=== PATIENT | male | born 1965 | race African-American/Black ===

== ENCOUNTER 2017-10-29 09:44 | Observation (INO) | payer OTHER ==
[~2017-10-29] VITALS: Ht 175.3 cm; Wt 97.1 kg
--- OUTSIDE RECORDS SUMMARY | 2017-10-29 09:46 | XMS REPORT | Clinical Summary ---
Author Author [facility] Address Unknown Phone Unavailable Care Team Providers Care Clipping Marker Name Role Phone PCP Unavailable Allergies Active Allergy Reactions Severity Noted Date Comments Hydrocodone-Acetaminophen Other (See Comments) 08/21/2017 "high feeling " Current Medications Prescription Sig. Disp. Refills Start End Date Status Date ALPRAZolam (XANAX) 0.25 Take 0.25 mg by mouth as Active MG tablet needed for Anxiety . metoprolol (TOPROL-XL) 50 Take 50 mg by mouth Active MG 24 hr tablet daily. lisinopril Take by mouth daily . Active (PRINIVIL,ZESTRIL) 10 MG tablet amiodarone (PACERONE) 100 Take 100 mg by mouth Active MG tablet daily. apixaban (ELIQUIS) 5 mg Take 5 mg by mouth daily Active Tab tablet . metroNIDAZOLE (FLAGYL) Take 1 tablet (500 mg 40 tablet 0 10/21/19 Active 500 MG tablet total) by mouth 4 (four) 18 18 times daily for 10 days. acetaminophen-codeine Take 1-2 tablets by mouth 20 tablet 0 10/21/19 10/31/19 Active (TYLENOL #3) 300-30 mg every 6 (six) hours as 18 18 per tablet needed for Pain for up to 10 days. Max Daily Amount: 8 tablets ciprofloxacin HCl (CIPRO) Take 1 tablet (500 mg 20 tablet 0 10/21/19 10/31/19 Active 500 MG tablet total) by mouth 2 (two) 18 18 times daily for 10 days. enalapril-hydrochlorothia Take 1 tablet by mouth 05/30/20 Discontin zide (VASERETIC) 10-25 mg daily. 5/12.5mg 17 ued per tablet fenofibrate Take 160 mg by mouth 05/30/20 Discontin (TRIGLIDE,LOFIBRA) 160 MG daily. 17 ued tablet enoxaparin (LOVENOX) 40 Inject 0.4 mLs (40 mg 7 Syringe 0 07/13/19 05/30/20 Discontin mg/0.4 mL Syrg total) subcutaneously 15 17 ued daily. aspirin 81 MG EC tablet Take 81 mg by mouth 07/14/19 Discontin daily. 18 ued celecoxib (CELEBREX) 200 Take 200 mg by mouth 08/27/19 Discontin MG capsule daily. 18 ued multivitamin capsule Take 1 capsule by mouth 08/13/19 Discontin daily. 18 ued cetirizine (ZYRTEC) 10 MG Take 10 mg by mouth every 08/13/19 Discontin tablet evening. 18 ued pantoprazole (PROTONIX) Take 1 tablet (40 mg 30 tablet 0 07/14/19 40 MG tablet total) by mouth daily for 18 18 30 days. sucralfate (CARAFATE) 1 Take 1 tablet (1 g total) 45 tablet 0 07/29/19 gram tablet by mouth 3 (three) times 18 18 daily before meals for 15 days. acetaminophen-codeine Take 1-2 tablets by mouth 30 tablet 0 08/13/19 08/27/19 Discontin (TYLENOL #3) 300-30 mg every 6 (six) hours as 18 18 ued per tablet needed for up to 10 days. Max Daily Amount: 8 tablets methocarbamol (ROBAXIN) Take 1 tablet (750 mg 40 tablet 0 08/13/19 08/27/19 Discontin 750 MG tablet total) by mouth 4 (four) 18 18 ued times daily for 10 days. methylPREDNISolone follow package 1 Package 0 08/13/19 08/27/19 Discontin (MEDROL DOSEPACK) 4 mg directions. 18 18 ued tablet acetaminophen-codeine Take 1 tablet by mouth 60 tablet 0 08/27/19 (TYLENOL #4) 300-60 mg every 4 (four) hours as 18 18 per tablet needed for up to 10 days. Max Daily Amount: 6 tablets methocarbamol (ROBAXIN) Take 1 tablet (750 mg 40 tablet 0 08/27/19 09/07/19 750 MG tablet total) by mouth 4 (four) 18 18 times daily for 10 days. ciprofloxacin HCl (CIPRO) Take 1 tablet (500 mg 40 tablet 0 10/21/19 10/21/19 Discontin 500 MG tablet total) by mouth 4 (four) 18 18 ued times daily for 10 days. ciprofloxacin HCl (CIPRO) Take 1 tablet (500 mg 20 tablet 0 10/21/19 10/21/19 Discontin 500 MG tablet total) by mouth 2 (two) 18 18 ued times daily for 10 days. ciprofloxacin HCl (CIPRO) Take 1 tablet (500 mg 20 tablet 0 10/21/19 10/21/19 Discontin 500 MG tablet total) by mouth 2 (two) 18 18 ued times daily for 10 days. ciprofloxacin HCl (CIPRO) Take 1 tablet (500 mg 20 tablet 0 10/21/19 10/21/19 Discontin 500 MG tablet total) by mouth 2 (two) 18 18 ued times daily for 10 days. Active Problems Problem Noted Date Back pain 08/23/2017 Sciatica of left side 08/21/2017 PAF (paroxysmal atrial fibrillation) (HCC) 07/13/2017 Paroxysmal atrial fibrillation (HCC) 05/28/2017 Encounters Date Type Specialty Care Team Description 10/20/2017 [facility] Diverticulitis of large intestine without perforation or abscess without bleeding (Primary Dx);Calculus of gallbladder without cholecystitis without obstruction 08/26/2017 Procedure Pass 08/26/2017 Surgery Brianda Daly MD LAMINECTOMY,LUMBAR W/DISCECTOMY 08/25/2017 Anesthesia Misty Mcarthur, Event REFRACTORY TECHNICIAN 08/21/2017 [facility] General Internal Medicine Elizabeth Ortega MD Sciatica of left side - Encounter Jerad Zamora MD (Primary Dx);Intractable 08/27/2017 Braydon Felix MD back pain 08/13/2017 Emergency Emergency Medicine Anthony Manley MD Lumbar herniated disc (Primary Dx);Acute left-sided low back pain with left-sided sciatica;Hypertension, uncontrolled;Chronic anticoagulation;History of atrial fibrillation 07/13/2017 [facility] Cardiology Bebo Kaye MD S/P ablation of atrial - Encounter fibrillation (Primary Dx) 07/14/2017 07/13/2017 Procedure Pass 07/13/2017 Surgery Bebo Kaye MD EPS & PULMONARY VEIN (PVI) W/ ROXY & GENERAL ANESTHESIA 07/12/2017 Anesthesia Jonh Rueda MD Event 07/12/2017 Orders Only Cardiology Bebo Kaye MD 07/11/2017 Hospital Radiology Bebo Kaye MD Encounter for screening Encounter for cardiovascular disorders;Chronic atrial fibrillation (HCC);Precordial pain;Other chest pain 07/07/2017 Outside Orders Central Scheduling Bebo Kaye MD Encounter for screening for cardiovascular disorders (Primary Dx);Chronic atrial fibrillation (HCC);Precordial pain;Other chest pain 05/28/2017 Emergency Cardiology Keven Robb, Paroxysmal atrial - MD fibrillation (HCC) 05/30/2017 Everett Ramos MD (Primary Dx) 05/28/2017 Orders Only General Internal Medicine 12/22/2016 [facility] Alex Ayala MD Neck pain Encounter 12/22/2016 Outside Orders Alex Ayala MD Neck pain (Primary Dx) after 10/28/2016 Social History Tobacco Use Types Packs/Day Years Used Date Former Smoker Smokeless Tobacco: Never Used Comments: quit in 1987 Alcohol Use Drinks/Week oz/Week Comments No Sex Assigned at Date Recorded Not on file Last Filed Vital Signs Vital Sign Reading Time Taken Blood Pressure 125/85 10/20/2017 5:57 AM CDT Pulse 80 10/19/2017 11:15 PM CDT Temperature 36.6 C (97.8 F) 10/19/2017 11:15 PM CDT Respiratory Rate 20 10/19/2017 11:15 PM CDT Oxygen Saturation 94% 10/20/2017 6:02 AM CDT Inhaled Oxygen - - Concentration Weight 96.2 kg (212 lb) 10/19/2017 11:15 PM CDT Height 175.3 cm (5' 9") 10/19/2017 11:15 PM CDT Body Mass Index 31.31 10/19/2017 11:15 PM CDT Plan of Treatment Not on file Implants Implanted Type Area Airport Operations Manager Device Expiration Model / Identifier Date Serial / Lot Mynxgrip Vascular Closure Device Cardiovasc N/A: Groin [facility] [id number] 06/02/2019 / Implanted: Qty: 1 on 07/13/2017 by ciara Montes / Bebo Kaye MD [id number] [facility] Full Strlprep 10ml Cement/Itz Left: Back TSAI:BIOSCI [id number] / [id number] - [id number] ler/Adhesi / Implanted: Qty: 1 on 08/26/2017 by tra [id number] Brianda Daly MD Procedures Procedure Name Priority Date/Time Associated Diagnosis Comments PROCEDURE W/ 08/26/2017 Lumbar radiculopathy INTRAOPERATIVE 1:55 PM COMMUNITY ENGAGEMENT LEADER NEUROMONITORING Special Needs (PRONE POSITION,W ILSON FRAME, MICROSCOPE , NEURO-KIM TORING: EMG, METRX SYSTEM) LAMINECTOMY,LUMBAR 08/26/2017 Lumbar radiculopathy W/DISCECTOMY 1:55 PM COMMUNITY ENGAGEMENT LEADER Special Needs (PRONE POSITION,W ILSON FRAME, MICROSCOPE , NEURO-KIM TORING: EMG, METRX SYSTEM) EPS & PULMONARY VEIN 07/13/2017 I48.91 AFIB (PVI) W/ ROXY & GENERAL 7:30 AM COMMUNITY ENGAGEMENT LEADER ANESTHESIA Case Notes (1) Case, 6T OP, W/G Anesthesia after 10/28/2016 Results * Urinalysis w/Microscopic - Clean Catch (10/20/2017 4:52 AM) Component Value Ref Range Color, UA Yellow Clarity, UA Clear Specific [place], UA 1.024 1.001 - 1.035 pH, UA 6.0 5.0 - 8.0 Protein, UA 20 mg/dL (A) Negative Glucose, UA Negative Negative Ketones, UA >150 mg/dL (A) Negative Bilirubin, UA Negative Negative Blood, UA Negative Negative Nitrite, UA Negative Negative Leukocytes, UA Negative Negative Urobilinogen, UA 0.2 0.2 - 1.0 mg/dL RBC, UA <1 /HPF WBC, UA 2 /HPF Mucus Few Specimen Source Urine, Clean Catch Specimen Performing Laboratory Urine - Urine, Clean [facility] Catch [id number] [place] [address] * CT abdomen pelvis with IV contrast (10/20/2017 3:16 AM) Specimen Performing Laboratory GE RIS Narrative Addendum Begins REPORT STATUS:A Correction: The impression should read: Findings suggestive of right colonic diverticulitis. Follow-up colonoscopy is recommended to exclude an underlying lesion. This correction was discussed with Dr. Akhtar at the time of dictation. Signed: Parish Schuster MD Report Verified Date/Time:10/20/2017 04:18:28 Reading Location: [address] Reading Room Addendum Ends FINAL REPORT CLINICAL HISTORY: Acute abdominal pain. FINDINGS: Multiple axial images of the abdomen and pelvis were performed after the uncomplicated administration of IV contrast. Oral contrast was not given. This exam was performed according to our departmental dose-optimization program, which includes automated exposure control, adjustment of the mA and/or kV according to patient size and/or use of the iterative reconstruction technique. Comparison:None. Lower chest: Curvilinear atelectasis versus scarring in the right greater than left lung bases. No pleural effusion or pneumothorax. Visualized cardiac contours normal. Liver: No significant findings. Gallbladder and biliary tree: Cholelithiasis Spleen: No significant findings. Adrenal Glands: No significant findings. Kidneys and ureters: No significant findings. Stomach and Duodenum: No significant findings. Pancreas: No significant findings. Bowel: Several colonic diverticula, including one at the ascending colon with adjacent inflammatory fat stranding. No evidence of perforation or abscess formation. No bowel obstruction or pneumatosis intestinalis. Appendix: Normal. Bladder: No significant findings. Major vascular structures: No significant findings. Reproductive organs: No significant findings. Other:No free air, fluid or adenopathy Skeleton: No acute bony abnormality. IMPRESSION: Findings suggestive of right colonic diverticulosis. Follow-up colonoscopy is recommended to exclude an underlying lesion. Cholelithiasis. Signed: Parish Schuster MD Report Verified Date/Time:10/20/2017 03:44:36 Reading Location: [address] Room Procedure Note Interface, External Ris In - 10/20/2017 4:20 AM CDT Addendum Begins REPORT STATUS:A Correction: The impression should read: Findings suggestive of right colonic diverticulitis. Follow-up colonoscopy is recommended to exclude an underlying lesion. This correction was discussed with Dr. Akhtar at the time of dictation. Signed: Parish Schuster MD Report Verified Date/Time: 10/20/2017 04:18:28 Reading Location: [address] Reading Room Addendum Ends FINAL REPORT CLINICAL HISTORY: Acute abdominal pain. FINDINGS: Multiple axial images of the abdomen and pelvis were performed after the uncomplicated administration of IV contrast. Oral contrast was not given. This exam was performed according to our departmental dose-optimization program, which includes automated exposure control, adjustment of the mA and/or kV according to patient size and/or use of the iterative reconstruction technique. Comparison:None. Lower chest: Curvilinear atelectasis versus scarring in the right greater than left lung bases. No pleural effusion or pneumothorax. Visualized cardiac contours normal. Liver: No significant findings. Gallbladder and biliary tree: Cholelithiasis Spleen: No significant findings. Adrenal Glands: No significant findings. Kidneys and ureters: No significant findings. Stomach and Duodenum: No significant findings. Pancreas: No significant findings. Bowel: Several colonic diverticula, including one at the ascending colon with adjacent inflammatory fat stranding. No evidence of perforation or abscess formation. No bowel obstruction or pneumatosis intestinalis. Appendix: Normal. Bladder: No significant findings. Major vascular structures: No significant findings. Reproductive organs: No significant findings. Other: No free air, fluid or adenopathy Skeleton: No acute bony abnormality. IMPRESSION: Findings suggestive of right colonic diverticulosis. Follow-up colonoscopy is recommended to exclude an underlying lesion. Cholelithiasis. Signed: Parish Schuster MD Report Verified Date/Time: 10/20/2017 03:44:36 Reading Location: [address] Reading Room * Blood culture (10/20/2017 2:16 AM) Only the most recent of 2 results within the time period is included. Component Value Ref Range Result No growth in 5 days Specimen Performing Laboratory Blood - Arm, [address] [address] * CBC with platelet count + automated diff (10/20/2017 12:27 AM) Only the most recent of 3 results within the time period is included. Component Value Ref Range WBC 8.7 3.5 - 10.5 K/ L RBC 4.55 (L) 4.63 - 6.08 M/ L Hemoglobin 13.2 (L) 13.7 - 17.5 GM/DL Hematocrit 40.4 40.1 - 51.0 % MCV 88.8 79.0 - 92.2 fL MCH 29.0 25.7 - 32.2 pg MCHC 32.7 32.3 - 36.5 GM/DL RDW 13.9 11.6 - 14.4 % Platelets 198 150 - 450 K/CU MM MPV 11.5 9.4 - 12.4 fL nRBC 0 0 - 0 /100 WBC % Neutros 77 % % Lymphs 13 % % Monos 10 % % Eos 0 % % Baso 0 % # Neutros 6.69 (H) 1.78 - 5.38 K/ L # Lymphs 1.11 (L) 1.32 - 3.57 K/ L # Monos 0.86 (H) 0.30 - 0.82 K/ L # Eos 0.01 (L) 0.04 - 0.54 K/ L # Baso 0.01 0.01 - 0.08 K/ L Immature 0 0 - 1 % Granulocytes-Relative Specimen Performing Laboratory Blood - Arm, [place] [address] * CBC with platelet count + automated diff (10/20/2017 12:27 AM) Only the most recent of 3 results within the time period is included. Specimen Performing Laboratory Blood Narrative The following orders were created for panel order CBC with platelet count + automated diff. Procedure Abnormality Status --------- - ------ CBC with platelet count ...[[id number]]AbnormalFinal result Please view results for these tests on the individual orders. * Amylase (10/20/2017 12:27 AM) Component Value Ref Range Amylase 41 25 - 125 U/L Specimen Performing Laboratory Blood - Arm, [address] [address] * Hepatic function panel (10/20/2017 12:27 AM) Component Value Ref Range Protein, Total 7.6 6.0 - 8.3 gm/dL Albumin 4.0 3.5 - 5.0 g/dL Total Bilirubin 1.2 0.2 - 1.2 mg/dL Bilirubin, Direct 0.5 0.1 - 0.5 mg/dL Alkaline Phosphatase 40 40 - 150 U/L AST 18 5 - 34 U/L ALT 24 6 - 55 U/L Specimen Performing Laboratory Blood - Arm, [address] [address] * Basic metabolic panel (Na, K+, Cl, CO2, Glu, Ca, BUN, Cr) (10/20/2017 12:27 AM ) Only the most recent of 8 results within the time period is included. Component Value Ref Range Sodium 139 136 - 145 meq/L Potassium 3.6 3.5 - 5.1 meq/L Chloride 103 98 - 107 meq/L CO2 26 22 - 29 meq/L BUN 22 (H) 7 - 21 mg/dL Creatinine 1.03 0.57 - 1.25 mg/dL Glucose 97 70 - 105 mg/dL Calcium 9.5 8.4 - 10.2 mg/dL EGFR 92Comment: ESTIMATED GFR IS NOT ACCURATE mL/min/1.73 sq m CREATININE CLEARANCE IN PREDICTING GLOMERULAR FILTRATION RATE. ESTIMATED GFR IS NOT APPLICABLE FOR DIALYSIS PATIENTS. Specimen Performing Laboratory Blood - Arm, [address] [address] * CBC (Hemogram only) (08/27/2017 2:47 AM) Only the most recent of 5 results within the time period is included. Component Value Ref Range WBC 9.2 3.5 - 10.5 K/ L RBC 4.82 4.63 - 6.08 M/ L Hemoglobin 14.2 13.7 - 17.5 GM/DL Hematocrit 44.4 40.1 - 51.0 % MCV 92.1 79.0 - 92.2 fL MCH 29.5 25.7 - 32.2 pg MCHC 32.0 (L) 32.3 - 36.5 GM/DL RDW 14.3 11.6 - 14.4 % Platelets 218 150 - 450 K/CU MM MPV 10.8 9.4 - 12.4 fL nRBC 0 0 - 0 /100 WBC Specimen Performing Laboratory Blood [address] [address] * Tissue Exam (08/26/2017 8:57 PM) Component Value Ref Range Case Report Surgical Pathology Report Case: [id number] Authorizing Provider: Brianda Daly MD Collected: 08/26/20177 Ordering Location: [facility] PERIOPERATIVE Received: 08/29/2017 07 SERVICES Pathologist: Jared Hair MD Specimen: Disc L4-5 DIAGNOSIS INTERVERTEBRAL DISC, L4-L5, MICRODISCECTOMY: - FIBROCARTILAGENOUS TISSUE WITH DEGENERATIVE CHANGES Signing Pathologist Direct Phone Line: [phone] CPT Code(s) 11343 and 83450 CLINICAL HISTORY Lumbar radiculopathy SPECIMEN SOURCE Disc L4-5 GROSS DESCRIPTION The specimen is received in formalin-filled container and labeled with the patient's information and labeled "disc L4-5" and consists of multiple fragments of fields fibrocartilaginous tissue measuring 2.6 x 2 x 0.6 cm in aggregate. Submitted entirely A1 for decalcification. CG/pl MICROSCOPIC DESCRIPTION Performed. Specimen Performing Laboratory Tissue - Disc L4-5 [place] [address] * NEEDLE EMG, 2 EXTREMITY (08/26/2017 7:48 PM) Specimen Performing Laboratory GE RIS Narrative INTRAOPERATIVE MONITORING REPORT Patient Name: Brianda Garg [facility] Surgery Date: August 26, 2017 [place]: S/N [id number] Monitoring began at 17:13 and ended at 19:48 Surgeon: Raul Daly MD Examining Physician : Mode Baker MD Monitoring Technologist: SABRA Vogt Procedure: Left L4-5 microdiscectomy Stimulation Parameters: Ulnar nerves individually stimulated at the wrist Rate 4.7Hz, Intensity 35mA, Duration 0.3ms Posterior Tibial nerves individually stimulated at the ankle Rate 4.7Hz, Intensity 65mA, Duration 0.3ms Filters 30-500Hz, Notch Off Recording Parameters: CV, CP3, CP4, CPz, and FPz Free-running EMG of Vastus Lateralis (L2-4) and Tibialis Anterior (L4-L5) muscle groups. Description : Intraoperative neurophysiological monitoring was performed using free-running EMG of L2-L5 innervated muscle groups. Baseline EMG activity was assessed and found spontaneous activity from Left TA. A real-time connection with the examining neurologist was established and maintained throughout the operative procedure by the monitoring technologist. Free-running EMG of L2-L5 innervated muscle groups was monitored continuously throughout the operative procedure with no sustained neurotonic evoked potentials noted. Conclusion : Absence of sustained neurotonic discharges on free-running EMG suggests that the nerve roots monitored remained undisturbed. Mode Baker MD M54.32 Procedure Note Interface, External Ris In - 08/29/2017 1:51 PM COMMUNITY ENGAGEMENT LEADER INTRAOPERATIVE MONITORING REPORT Patient Name: Brianda Garg [facility] Surgery Date: August 26, 2017 Marc: S/N [id number] Monitoring began at 17:13 and ended at 19:48 Surgeon: Raul Daly MD Examining Physician : Mode Baker MD Monitoring Technologist: SABRA Vogt Procedure: Left L4-5 microdiscectomy Stimulation Parameters: Ulnar nerves individually stimulated at the wrist Rate 4.7Hz, Intensity 35mA, Duration 0.3ms Posterior Tibial nerves individually stimulated at the ankle Rate 4.7Hz, Intensity 65mA, Duration 0.3ms Filters 30-500Hz, Notch Off Recording Parameters: CV, CP3, CP4, CPz, and FPz Free-running EMG of Vastus Lateralis (L2-4) and Tibialis Anterior (L4-L5) muscle groups. Description : Intraoperative neurophysiological monitoring was performed using free-running EMG of L2-L5 innervated muscle groups. Baseline EMG activity was assessed and found spontaneous activity from Left TA. A real-time connection with the examining neurologist was established and maintained throughout the operative procedure by the monitoring technologist. Free-running EMG of L2-L5 innervated muscle groups was monitored continuously throughout the operative procedure with no sustained neurotonic evoked potentials noted. Conclusion : Absence of sustained neurotonic discharges on free-running EMG suggests that the nerve roots monitored remained undisturbed. Mode Baker MD M54.32 * FL radio operator in or 30 minute increments (08/26/2017 6:35 PM) Specimen Performing Laboratory GE RIS Narrative FINAL REPORT Intraoperative fluoroscopy. Clinical history: Decompression L4-L5 FINDINGS: Radiologist was not present for the exam. Fluoroscopy was not performed by the undersigned. Request was made for disc space localization. Surgical marker is aiming at the superior aspect of L5 and towards the L4-L5 disc space. Findings were discussed with the OR team at 6:45 PM on 08/26/2017 1 fluoroscopically acquired images of the lumbar were obtained. Fluoroscopy time: 6.8 seconds. Reference Air Kerma (Ka, r): 2.16 mGy. Impression: Intraoperative exam as described above. Signed: Joon Hyman MD Report Verified Date/Time:08/26/2017 18:47:17 Reading Location: [address] Consult Reading Room Procedure Note Interface, External Ris In - 08/26/2017 6:57 PM COMMUNITY ENGAGEMENT LEADER FINAL REPORT Intraoperative fluoroscopy. Clinical history: Decompression L4-L5 FINDINGS: Radiologist was not present for the exam. Fluoroscopy was not performed by the undersigned. Request was made for disc space localization. Surgical marker is aiming at the superior aspect of L5 and towards the L4-L5 disc space. Findings were discussed with the OR team at 6:45 PM on 08/26/2017 1 fluoroscopically acquired images of the lumbar were obtained. Fluoroscopy time: 6.8 seconds. Reference Air Kerma (Ka, r): 2.16 mGy. Impression: Intraoperative exam as described above. Signed: Joon Hyman MD Report Verified Date/Time: 08/26/2017 18:47:17 Reading Location: [address] Consult Reading Room * TRANSFUSION SERVICE REPORT - SCAN (08/26/2017 5:42 PM) * ECG 12 lead (08/26/2017 10:06 AM) Only the most recent of 4 results within the time period is included. Specimen Performing Laboratory [employer] MUSE Narrative Ventricular Rate 50 BPM Atrial Rate 50 BPM P-R Interval 162 ms QRS Duration 106 ms Q-T Interval 472 ms QTC Calculation(Bazett) 430 ms P Emigrant 26 degrees R Emigrant -20 degrees T Emigrant -13 degrees Sinus bradycardia Moderate voltage criteria for LVH, may be normal variant Cannot rule out Septal infarct (cited on or before 20-SEP-1996) Abnormal ECG When compared with ECG of 27-NOV-2017 08:47, [place] interval has decreased Nonspecific T wave abnormality no longer evident in Anterior leads Confirmed by MD SLAUGHTER JOSEPH P ([id number]) on 08/26/2017 2:13:00 PM Procedure Note Interface, External Ris In - 08/26/2017 2:13 PM COMMUNITY ENGAGEMENT LEADER Ventricular Rate 50 BPM Atrial Rate 50 BPM P-R Interval 162 ms QRS Duration 106 ms Q-T Interval 472 ms QTC Calculation(Bazett) 430 ms P Emigrant 26 degrees R Emigrant -20 degrees T Emigrant -13 degrees Sinus bradycardia Moderate voltage criteria for LVH, may be normal variant Cannot rule out Septal infarct (cited on or before 20-SEP-1996) Abnormal ECG When compared with ECG of 30-MAY-2017 08:47, OK interval has decreased Nonspecific T wave abnormality no longer evident in Anterior leads Confirmed by MD SLAUGHTER JOSEPH P ([id number]) on 08/26/2017 2:13:00 PM * Type and screen, automated (08/25/2017 5:52 AM) Component Value Ref Range ABO/RH AUTOMATED (BEAKER) A POSITIVE Ab Scrn NEGATIVE Specimen Performing Laboratory Blood - Arm, [place] [address] * PT/aPTT (08/25/2017 5:52 AM) Component Value Ref Range Protime 13.3 11.7 - 14.7 seconds INR 1.0 <=5.9 PTT 26.6 22.5 - 36.0 seconds Specimen Performing Laboratory Blood - Arm, [place] [address] Narrative RECOMMENDED COUMADIN/WARFARIN INR THERAPY RANGES STANDARD DOSE: 2.0 - 3.0 Includes: PROPHYLAXIS for venous thrombosis, systemic embolization; TREATMENT for venous thrombosis and/or pulmonary embolus. HIGH RISK: Target INR is 2.5-3.5 for patients with mechanical heart valves. * MR spine lumbar without IV contrast (08/21/2017 10:55 AM) Specimen Performing Laboratory GE RIS Narrative FINAL REPORT MRI lumbar spine without contrast. CLINICAL HISTORY: Lumbar radiculopathy, >6wks conservative tx, persistent-progressive sx, surgical candidate on eliquis, recent epidural steroid injection, worsening pain. r/o epidural hematoma TECHNIQUE: MRI of the lumbar spine was performed, utilizing the following sequences: Sagittal T1, T2, STIR; axial T1 and T2. COMPARISON: May 27, 2008 FINDINGS: There is maintenance of the lumbar curvature and alignment. There is no evidence for vertebral body fracture or subluxation. There is mild endplate fatty marrow change at L4-L5. Bone marrow signal intensity is within normal limits. The conus medullaris terminates at L1. At T12-L1, unremarkable At L1-L2, unremarkable At L2-L3, unremarkable At L3-L4, mild disc bulge and mild facet arthropathy. There is no significant central canal narrowing, minimal bilateral foraminal narrowing. At L4-L5, mild loss of disc height, associated with mild to moderate disc bulge, and left paracentral, subarticular region annular tear. There is a new disc extrusion/sequestration in the left subarticular region, which migrates caudally, measuring approximately 1 cm TR, 8mm AP, and 12 mm SI. It effaces the left lateral recess, likely compressing the descending left L5 nerve root, and slightly abuts the left S1 nerve root without evidence for displacement. There is mild central canal narrowing and mild bilateral foraminal narrowing at this level. At L5-S1, mild loss of disc height, associated with a mild to moderate disc bulge. Previously seen disc extrusion is no longer identified. Mild facet arthropathy. No significant central canal narrowing at this level, qwic-sw-pardusqh bilateral foraminal stenosis. The visualized paraspinal and retroperitoneal soft tissues are unremarkable. IMPRESSION: Left subarticular disc extrusion/sequestration at L4-L5, effacing the left lateral recess, likely exerting mass effect upon the descending left L5 nerve root. The significance of this finding should be correlated with patient's symptoms. Previously seen disc extrusion at L5-S1 is no longer identified. Signed: Ryann Alexander MD Report Verified Date/Time:08/21/2017 10:47:27 Reading Location: [facility] C0[facility] Neuro Reading Room Procedure Note Interface, External Ris In - 08/21/2017 10:55 AM COMMUNITY ENGAGEMENT LEADER FINAL REPORT MRI lumbar spine without contrast. CLINICAL HISTORY: Lumbar radiculopathy, >6wks conservative tx, persistent-progressive sx, surgical candidate on eliquis, recent epidural steroid injection, worsening pain. r/o epidural hematoma TECHNIQUE: MRI of the lumbar spine was performed, utilizing the following sequences: Sagittal T1, T2, STIR; axial T1 and T2. COMPARISON: May 27, 2008 FINDINGS: There is maintenance of the lumbar curvature and alignment. There is no evidence for vertebral body fracture or subluxation. There is mild endplate fatty marrow change at L4-L5. Bone marrow signal intensity is within normal limits. The conus medullaris terminates at L1. At T12-L1, unremarkable At L1-L2, unremarkable At L2-L3, unremarkable At L3-L4, mild disc bulge and mild facet arthropathy. There is no significant central canal narrowing, minimal bilateral foraminal narrowing. At L4-L5, mild loss of disc height, associated with mild to moderate disc bulge, and left paracentral, subarticular region annular tear. There is a new disc extrusion/sequestration in the left subarticular region, which migrates caudally, measuring approximately 1 cm TR, 8mm AP, and 12 mm SI. It effaces the left lateral recess, likely compressing the descending left L5 nerve root, and slightly abuts the left S1 nerve root without evidence for displacement. There is mild central canal narrowing and mild bilateral foraminal narrowing at this level. At L5-S1, mild loss of disc height, associated with a mild to moderate disc bulge. Previously seen disc extrusion is no longer identified. Mild facet arthropathy. No significant central canal narrowing at this level, motu-[id number] bilateral foraminal stenosis. The visualized paraspinal and retroperitoneal soft tissues are unremarkable. IMPRESSION: Left subarticular disc extrusion/sequestration at L4-L5, effacing the left lateral recess, likely exerting mass effect upon the descending left L5 nerve root. The significance of this finding should be correlated with patient's symptoms. Previously seen disc extrusion at L5-S1 is no longer identified. Signed: Ryann Alexander MD Report Verified Date/Time: 08/21/2017 10:47:27 Reading Location: [facility] C0[facility] Neuro Reading Room * RHYTHM STRIP - SCAN (08/02/2017 10:10 AM) Only the most recent of 3 results within the time period is included. * CARDIAC CATH REPORT - SCAN (07/24/2017 4:22 PM) * EKG-SCANNED (07/15/2017 11:10 AM) * POC ACTIVATED CLOTTING TIME (07/13/2017 9:50 AM) Only the most recent of 4 results within the time period is included. Component Value Ref Range Activated Clotting Time 307Comment: TESTED AT [facility] [address] [place] [address] Specimen Performing Laboratory Blood [facility] [address] [place] [address] * CT heart without & with gating & 3d (07/11/2017 8:39 AM) Specimen Performing Laboratory [employer] RIS Narrative Addendum Begins REPORT STATUS:A Addendum: July 11, 2017 at 1840 hours I have reviewed the CT images for this study and I concur with the nonvascular imaging findings as dictated. Signed: Meme Pino MD Report Verified Date/Time:07/11/2017 18:39:30 Reading Location: [place] [id number] Angio Body Reading Room Addendum Ends FINAL REPORT CT angiography of the pulmonary veins, 11 July 2017 INDICATION: This is a 52 years old malewith history of atrial fibrillation presented here for pulmonary vein ostial mapping. This study is performed in an attempt to avoid invasive procedure. TECHNIQUE:Spiral acquisition during intravenous contrast administration using a Rebecca multislice cardiac CT scanner without prospective ECG triggering.Multiplanar reconstructions were performed interactively by the interpreting physician using an independent ([employer]) workstation. Please refer to the contrast sheet scanned in the EPIC system for the amount and route of contrast given. This exam was performed according to our departmental dose-optimisation programme, which includes automated exposure control, adjustment of the mA and/or kV according to patient size and/or use of iterative reconstruction technique. Dose modulation, iterative reconstruction, and/or weight based adjustment of the mA/kV was utilized to reduce the radiation dose to as low as reasonably achievable. FINDINGS: VASCULAR: The pericardium appears normal. No pericardial effusion is identified. The central pulmonary artery is normal in calibre. No evidence of central pulmonary artery embolism is seen. The visualised thoracic aorta is normal in course, calibre, and contour and this is a nongated study therefore motion artefact is seen in the aortic root. There is no evidence for acute aortic pathology. The arch vessel branching pattern is normal, and the origins of the arch branch vessels are all widely patent. The cardiac chambers demonstrate normal atrioventricular and ventriculoarterial concordance, and systemic and pulmonary venous return. The left ventricle is normal in size, and no abnormal masses are identified. The coronary artery origins are normal.No coronary calcification is present. Left atrial enlargement is identified. No thrombus is visualized in the left atrial appendage. Pulmonary vein morphology is normal with pairs of pulmonary veins on each side of the left atrium. There is no evidence for pulmonary vein stenosis. Quantitative pulmonary vein ostial mapping (measured utilizing MPR analysis) is as follows: Pulmonary veinMajor axisMinor axisCross-sectional area * Right upper 17 mm 15 mm2.2 cm2 Right middle 13 mm 10 mm0.9 cm2 Right lower 22 mm 21 mm3.7 cm2 Left upper18 mm 16 mm2.2 cm2 Left lower 22 mm 13 mm2.4 cm2 NON-VASCULAR: The visualised thyroid gland appears unremarkable. The chest wall and mediastinum appears normal. No significant adenopathy is identified in the mediastinum. In the lung windows, no obvious endobronchial lesion is seen and no pleural effusion is identified. Minimal atelectatic changes are seen. No suspicious pulmonary nodule is identified. Note, this likely a small diverticulum identified, adjacent to the right lateral aspect of the proximal trachea, at image 6, a common variant. An addendum will be dictated thereafter, if needed. The limited images of the upper abdomen reveal no significant abnormalities of the visualized organs. No acute bony pathology is seen. Some degenerative changes is noted. IMPRESSIONS: 1.The left atrium is enlarged.No thrombus is visualized in the left atrial appendage. Normal coronary artery origins. No obvious coronary artery calcification is appreciated in the nongated data set. 2.Pulmonary vein morphology is normal with pairs of pulmonary veins bilaterally.There is no evidence for pulmonary vein stenosis. Quantitative pulmonary vein ostial mapping is as noted above. 3.Normal thoracic aorta. 4.No acute pulmonary pathology. 5.Other findings as described above. 6.An addendum will be dictated regarding the non-vascular findings by the Orthopaedic Nurse Radiologist. Signed: Ricky Mueller MD Report Verified Date/Time:07/11/2017 08:51:54 Reading Location: [facility] P047 Cardiology MRI Procedure Note Interface, External Ris In - 07/11/2017 6:41 PM COMMUNITY ENGAGEMENT LEADER Addendum Begins REPORT STATUS:A Addendum: July 11, 2017 at 1840 hours I have reviewed the CT images for this study and I concur with the nonvascular imaging findings as dictated. Signed: Meme Pino MD Report Verified Date/Time: 07/11/2017 18:39:30 Reading Location: [facility] P048 Angio Body Reading Room Addendum Ends FINAL REPORT CT angiography of the pulmonary veins, 11 July 2017 INDICATION: This is a 52 years old male with history of atrial fibrillation presented here for pulmonary vein ostial mapping. This study is performed in an attempt to avoid invasive procedure. TECHNIQUE: Spiral acquisition during intravenous contrast administration using a Rebecca multislice cardiac CT scanner without prospective ECG triggering. Multiplanar reconstructions were performed interactively by the interpreting physician using an independent ([employer]) workstation. Please refer to the contrast sheet scanned in the [employer] system for the amount and route of contrast given. This exam was performed according to our departmental dose-optimisation programme, which includes automated exposure control, adjustment of the mA and/or kV according to patient size and/or use of iterative reconstruction technique. Dose modulation, iterative reconstruction, and/or weight based adjustment of the mA/kV was utilized to reduce the radiation dose to as low as reasonably achievable. FINDINGS: VASCULAR: The pericardium appears normal. No pericardial effusion is identified. The central pulmonary artery is normal in calibre. No evidence of central pulmonary artery embolism is seen. The visualised thoracic aorta is normal in course, calibre, and contour and this is a nongated study therefore motion artefact is seen in the aortic root. There is no evidence for acute aortic pathology. The arch vessel branching pattern is normal, and the origins of the arch branch vessels are all widely patent. The cardiac chambers demonstrate normal atrioventricular and ventriculoarterial concordance, and systemic and pulmonary venous return. The left ventricle is normal in size, and no abnormal masses are identified. The coronary artery origins are normal. No coronary calcification is present. Left atrial enlargement is identified. No thrombus is visualized in the left atrial appendage. Pulmonary vein morphology is normal with pairs of pulmonary veins on each side of the left atrium. There is no evidence for pulmonary vein stenosis. Quantitative pulmonary vein ostial mapping (measured utilizing MPR analysis) is as follows: Pulmonary vein Major axis Minor axis Cross-sectional area * Right upper 17 mm 15 mm 2.2 cm2 Right middle 13 mm 10 mm 0.9 cm2 Right lower 22 mm 21 mm 3.7 cm2 Left upper 18 mm 16 mm 2.2 cm2 Left lower 22 mm 13 mm 2.4 cm2 NON-VASCULAR: The visualised thyroid gland appears unremarkable. The chest wall and mediastinum appears normal. No significant adenopathy is identified in the mediastinum. In the lung windows, no obvious endobronchial lesion is seen and no pleural effusion is identified. Minimal atelectatic changes are seen. No suspicious pulmonary nodule is identified. Note, this likely a small diverticulum identified, adjacent to the right lateral aspect of the proximal trachea, at image 6, a common variant. An addendum will be dictated thereafter, if needed. The limited images of the upper abdomen reveal no significant abnormalities of the visualized organs. No acute bony pathology is seen. Some degenerative changes is noted. IMPRESSIONS: 1. The left atrium is enlarged. No thrombus is visualized in the left atrial appendage. Normal coronary artery origins. No obvious coronary artery calcification is appreciated in the nongated data set. 2. Pulmonary vein morphology is normal with pairs of pulmonary veins bilaterally. There is no evidence for pulmonary vein stenosis. Quantitative pulmonary vein ostial mapping is as noted above. 3. Normal thoracic aorta. 4. No acute pulmonary pathology. 5. Other findings as described above. 6. An addendum will be dictated regarding the non-vascular findings by the Orthopaedic Nurse Radiologist. Signed: Ricky Mueller MD Report Verified Date/Time: 07/11/2017 08:51:54 Reading Location: [place] [address] Cardiology MRI * Comprehensive metabolic panel (07/11/2017 6:40 AM) Component Value Ref Range Protein, Total 7.3 6.0 - 8.3 gm/dL Albumin 3.8 3.5 - 5.0 g/dL Alkaline Phosphatase 29 (L) 40 - 150 U/L Total Bilirubin 0.4 0.2 - 1.2 mg/dL Sodium 141 136 - 145 meq/L Potassium 3.2 (L) 3.5 - 5.1 meq/L Chloride 105 98 - 107 meq/L CO2 27 22 - 29 meq/L BUN 27 (H) 7 - 21 mg/dL Creatinine 1.28 (H) 0.57 - 1.25 mg/dL Glucose 103 70 - 105 mg/dL Calcium 8.7 8.4 - 10.2 mg/dL AST 27 5 - 34 U/L ALT 39 6 - 55 U/L EGFR 72Comment: ESTIMATED GFR IS NOT ACCURATE mL/min/1.73 sq m CREATININE CLEARANCE IN PREDICTING GLOMERULAR FILTRATION RATE. ESTIMATED GFR IS NOT APPLICABLE FOR DIALYSIS PATIENTS. Specimen Performing [place] [address] * ECHOCARDIOGRAM REPORT - SCAN (05/28/2017 1:50 PM) * XR chest 2 views (05/28/2017 12:49 PM) Specimen Performing Laboratory GE RIS Narrative FINAL REPORT PA and Lateral views of the chest dated 05/28/2017 COMPARISON: July 12, 2014 Clinical information: AF Comment:Heart is normal in size. Pulmonary vasculature is unremarkable. Lungs are clear. No pulmonary infiltrate or pleural effusion is present. Impression:No active cardiopulmonary disease or interval change. Signed: Vaishali Mcallister MD Report Verified Date/Time:05/28/2017 12:53:01 Reading Location: [facility] C013Y CT Body Reading Room Procedure Note Interface, External Ris In - 05/28/2017 12:55 PM COMMUNITY ENGAGEMENT LEADER FINAL REPORT PA and Lateral views of the chest dated 05/28/2017 COMPARISON: July 12, 2014 Clinical information: AF Comment: Heart is normal in size. Pulmonary vasculature is unremarkable. Lungs are clear. No pulmonary infiltrate or pleural effusion is present. Impression: No active cardiopulmonary disease or interval change. 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 Needs to be Pre Read FellowJuin BASHIR Boudreaux Procedure Type of Study TTE procedure:2DECHO W DOPPLER(CW/PW/COLOR) (STAT) Indications:Acute Chest Pain/ Suspected CAD. Clinical History HGB 14.3 HCT 42.6 % AFIB Height: 69 inches Weight: 96.16 kg (212 lbs) BSA: 2.12 m^2 BMI: 31.31 kg/m^2 HR: 68 bpm BP: 115/74 mmHg Summary 1. All of the LV segments contract normally . LVEF by Garcia's method of disk assessment is normal (55-60%) 2. The right ventricular chamber size and systolic function are within normal limits. 3. Grade 1 diastolic dysfunction (impaired relaxation and low-normal LA pressure). Signature Findings Rhythm/BPAtrial fibrillation with controlled ventricular response. Left Ventricle The LV endocardium is well visualized. Global LV systolic function normal . LVEF by Garcia's method of disk assessment is normal (55-60%) . Fxai-ka-pzqgklbl concentric LV hypertrophy. The left ventricle is chamber size (by vol index) is normal (male - LVED vol - 34- 74ml/m2). All of the LV segments contract normally . Grade 1 diastolic dysfunction ( impaired relaxation and low-normal LA pressure). Left AtriumLA size is normal . Right VentricleThe right ventricular chamber size and systolic function are within normal limits. Right Atrium RA size is normal. Aortic Valve Normal AoV structure and function. Mitral Valve Mild MV leaflet thickening. Trace mitral regurgitation. Tricuspid ValveTV structure is normal. A trace of tricuspid regurgitation. Estimated peak systolic PA pressure is cannot be determined due to inadequate TR velocity signal . Pulmonic Valve Normal PV structure and function by limited views and Doppler. AortaAortic root size (Sinus of Valsalva diameter) is mild to moderately dilated. 4.0 cm PericardiumNo pericardial effusion is visualized. IVC/SVC/PA/PV/PleuralThe inferior vena cava is adequately visualized. The estimated RA pressure by IVC dynamics 5-10mmHg . Chambers/Structures Left Atrium LA Volume: 45.53 ml LA Area: 12.56 cm^2 LA Vol. Index: 21 ml/m^2 Left Ventricle LVIDd: 4.27 cm LV Septum Diastolic: 1.64 cm LV PW Diastolic: 1.39 cm LVOT Diameter: 2.16 cm Doppler/Quantitative Measurements Aortic Valve Peak Velocity: 0.85 m/sMean Velocity: 0.59 m/s Peak Gradient: 2.87 mmHg Mean Gradient: 1.56 mmHg AV Area (continuity): 3.66 cm^2 AV VTI: 14.65 cm AV DVI: 1 LVOT Peak Velocity: 0.83 m/s Peak Gradient: 2.79 mmHg Mean Velocity: 0.55 m/s Mean Gradient: 1.37 mmHg LVOT Diameter: 2.16 cmLVOT VTI: 14.64 cm LVOT Area: 3.66 cm^2LVOT SV:53.62 ml LVOT CO: 3.65 l/min LVOT CI: 1.72 l/min/m^2 Procedure Note Interface, External Ris In - 05/28/2017 1:12 PM COMMUNITY ENGAGEMENT LEADER Transthoracic Echocardiography Report (TTE) Demographics Patient Name BRIANDA GARG Date of Study 05/28/2017 CONSTANTINO THEODORE Gender Male Visit Number [id number] Race Unknown Room Number 1131 Number Date of 1965 Referring Rachel Floyd MD 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 Needs to be Pre Read Fellow BASHIR Samaniego Procedure Type of Study TTE procedure:2DECHO W DOPPLER(CW/PW/COLOR) (STAT) Indications:Acute Chest Pain/ Suspected CAD. Clinical History HGB 14.3 HCT 42.6 % AFIB Height: 69 inches Weight: 96.16 kg (212 lbs) BSA: 2.12 m^2 BMI: 31.31 kg/m^2 HR: 68 bpm BP: 115/74 mmHg Summary 1. All of the LV segments contract normally . LVEF by Garcia's method of disk assessment is normal (55-60%) 2. The right ventricular chamber size and systolic function are within normal limits. 3. Grade 1 diastolic dysfunction (impaired relaxation and low-normal LA pressure). Signature Findings Rhythm/BP Atrial fibrillation with controlled ventricular response. Left Ventricle The LV endocardium is well visualized. Global LV systolic function normal . LVEF by Garcia's method of disk assessment is normal (55-60%) . Srxp-ob-hhatofgw concentric LV hypertrophy. The left ventricle is chamber size (by vol index) is normal (male - LVED vol - 34-74ml/m2). All of the LV segments contract normally . Grade 1 diastolic dysfunction (impaired relaxation and low-normal LA pressure). Left Atrium LA size is normal . Right Ventricle The right ventricular chamber size and systolic function are within normal limits. Right Atrium RA size is normal. Aortic Valve Normal AoV structure and function. Mitral Valve Mild MV leaflet thickening. Trace mitral regurgitation. Tricuspid Valve TV structure is normal. A trace of tricuspid regurgitation. Estimated peak systolic PA pressure is cannot be determined due to inadequate TR velocity signal . Pulmonic Valve Normal PV structure and function by limited views and Doppler. Aorta Aortic root size (Sinus of Valsalva diameter) is mild to moderately dilated. 4.0 cm Pericardium No pericardial effusion is visualized. IVC/SVC/PA/PV/Pleural The inferior vena cava is adequately visualized. The estimated RA pressure by IVC dynamics 5-10mmHg . Chambers/Structures Left Atrium LA Volume: 45.53 ml LA Area: 12.56 cm^2 LA Vol. Index: 21 ml/m^2 Left Ventricle LVIDd: 4.27 cm LV Septum Diastolic: 1.64 cm LV PW Diastolic: 1.39 cm LVOT Diameter: 2.16 cm Doppler/Quantitative Measurements Aortic Valve Peak Velocity: 0.85 m/s Mean Velocity: 0.59 m/s Peak Gradient: 2.87 mmHg Mean Gradient: 1.56 mmHg AV Area (continuity): 3.66 cm^2 AV VTI: 14.65 cm AV DVI: 1 LVOT Peak Velocity: 0.83 m/s Peak Gradient: 2.79 mmHg Mean Velocity: 0.55 m/s Mean Gradient: 1.37 mmHg LVOT Diameter: 2.16 cm LVOT VTI: 14.64 cm LVOT Area: 3.66 cm^2 LVOT SV:53.62 ml LVOT CO: 3.65 l/min LVOT CI: 1.72 l/min/m^2 * TSH/Free T4 If Indicated (05/28/2017 9:51 AM) Component Value Ref Range TSH 1.73 0.35 - 4.94 uIU/mL Specimen Performing Laboratory Blood - Arm, Left [facility] [address] [address] * Lipid panel (05/28/2017 9:51 AM) Component Value Ref Range Triglycerides 153 mg/dL Cholesterol 218 mg/dL HDL 43 mg/dL LDL Calculated 144 mg/dL Specimen Performing Laboratory Blood - Arm, Left [address] [address] Narrative Triglyceride Reference Range: Low Risk <150 [id number] High Risk 200-499 Very High Risk>=500 Cholesterol Reference Range: Low Risk <200 Ibyczujjrg192-449 High Risk>240 HDL Cholesterol Reference Range: Low Risk >=60 High Risk <40 LDL Cholesterol Reference Range: Optimal<100 Near Siieyqi130-947 Uravhhasxn405-844 [id number] Very High >=190 * ED ECG Interpretation (05/28/2017 8:11 AM) Narrative Keven Robb MD 05/28/20178:11 AM ECG/EKG Interpretation Date/Time: 05/28/2017 2:22 AM Performed by: KEVEN ROBB Authorized by: KEVEN ROBB The ECG was interpreted by ED physician. The ECG is interpreted as atrial fibrillation. Rate is normal rate. ST segments normal. T-wave inversion in lead(s) III and aVF. [place] is normal. Q-waves are present in lead(s) V1 and V2. Clinical Impression: abnormal ECGECG reviewed and does not meet STEMI criteria. * Troponin I (not available at [facility]) (05/28/2017 4:22 AM) Component Value Ref Range Troponin I <0.01 0.00 - 0.03 ng/mL Specimen Performing Laboratory Blood [address] [address] Narrative Troponin I (TnI) levels must be interpreted in the context of the presenting symptoms and the clinical findings. Elevated TnI levels indicate myocardial damage, but are not specific for ischemic heart disease. Elevated TnI levels are seen in patients with other cardiac conditions (including myocarditis and congestive heart failure), and slight TnI elevations occur in patients with other conditions, including sepsis, renal failure, acidosis, acute neurological disease, and persistent tachyarrhythmia. * PT/INR (05/28/2017 4:22 AM) Component Value Ref Range Protime 12.7 11.7 - 14.7 seconds INR 1.0 <=5.9 Specimen Performing Laboratory Blood [address] [address] Narrative RECOMMENDED COUMADIN/WARFARIN INR THERAPY RANGES STANDARD DOSE: 2.0 - 3.0 Includes: PROPHYLAXIS for venous thrombosis, systemic embolization; TREATMENT for venous thrombosis and/or pulmonary embolus. HIGH RISK: Target INR is 2.5-3.5 for patients with mechanical heart valves. * XR spine cervical complete 4 views min (12/22/2016 11:37 AM) Specimen Performing Laboratory GE RIS Narrative FINAL REPORT HISTORY: Neck pain. COMPARISON: None. DISCUSSION: AP, lateral, oblique and open mouth views of the cervical spine were obtained. The cervical spine is visualized from the skull base through the top of T1. No fractures or subluxations are identified. No lytic or blastic abnormalities. No radiopaque foreign bodies. Multilevel degenerative disc changes of the cervical spine are seen most significantly at the C6-C7 level. There is bilateral C3-4 neural foraminal narrowing as well as some multilevel narrowing on the right side. The findings can be better assessed with an MRI. Some nonspecific well-corticated bony densities are identified posterior to the C6 spinous process. The lateral masses as well as dens are within normal limits. IMPRESSION: Multilevel degenerative disc changes of the cervical spine with some bilateral neural foraminal narrowing as described above. Signed: Dirk Tadeo MD Report Verified Date/Time:12/22/2016 16:18:17 Reading Location: [address] Radiology Reading Room Procedure Note Interface, External Ris In - 12/22/2016 4:20 PM CDT FINAL REPORT HISTORY: Neck pain. COMPARISON: None. DISCUSSION: AP, lateral, oblique and open mouth views of the cervical spine were obtained. The cervical spine is visualized from the skull base through the top of T1. No fractures or subluxations are identified. No lytic or blastic abnormalities. No radiopaque foreign bodies. Multilevel degenerative disc changes of the cervical spine are seen most significantly at the C6-C7 level. There is bilateral C3-4 neural foraminal narrowing as well as some multilevel narrowing on the right side. The findings can be better assessed with an MRI. Some nonspecific well-corticated bony densities are identified posterior to the C6 spinous process. The lateral masses as well as dens are within normal limits. IMPRESSION: Multilevel degenerative disc changes of the cervical spine with some bilateral neural foraminal narrowing as described above. Signed: Dirk Tadeo MD Report Verified Date/Time: 12/22/2016 16:18:17 Reading Location: [address] Radiology Reading Room after 10/28/2016
--- OUTSIDE RECORDS SUMMARY | 2017-10-29 09:46 | XMS REPORT | Clinical Summary ---
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 Disp. Refills Start End Date Status Date lisinopril-hydrochlorothi TAKE 1 TABLET ONCE EACH 1 01/18/20 Active azide DAY BY MOUTH 17 (PRINZIDE,ZESTORETIC) 20-25 mg per tablet amIODarone (PACERONE) 200 Take 200 mg by mouth 2 2 12/17/19 Active MG tablet (two) times a day. 17 cyclobenzaprine Take 10 mg by mouth 3 Active (FLEXERIL) 10 mg tablet (three) times a day as needed for muscle spasms. metoprolol tartrate Take 50 mg by mouth 2 Active (LOPRESSOR) 50 mg tablet (two) times a day. aspirin (ECOTRIN) 81 MG Take 81 mg by mouth Active enteric coated tablet daily. celecoxib (CeleBREX) 200 TAKE 1 CAPSULE BY MOUTH 30 capsule 0 Active MG capsuleIndications: DAILY. 18 Acute left-sided low back pain with left-sided sciatica, Osteoarthritis of spine with radiculopathy, lumbar region ELIQUIS 5 mg tablet Take 5 mg by mouth 2 3 07/14/19 Active (two) times a day. 18 pantoprazole (PROTONIX) Take 40 mg by mouth 0 07/14/19 Active 40 MG EC tablet daily. 18 multivitamin capsule Take 1 capsule by mouth. Active lisinopril-hydrochlorothi Take 1 tablet by mouth 1 06/19/20 Active azide daily. 17 (PRINZIDE,ZESTORETIC) 10-12.5 mg per tablet cetirizine (ZyrTEC) 10 MG Take 10 mg by mouth. Active tablet meloxicam (MOBIC) 15 mg Take 15 mg by mouth every 2 02/16/20 Discontin tablet morning. 17 17 ued cyclobenzaprine Take 5 mg by mouth 3 1 01/27/20 03/03/20 Discontin (FLEXERIL) 5 mg tablet (three) times a day. 17 17 ued celecoxib (CeleBREX) 200 Take 1 capsule (200 mg 30 capsule 0 03/03/20 03/30/20 Discontin MG capsuleIndications: total) by mouth daily for 17 17 ued Acute left-sided low back 30 days. pain with left-sided sciatica, Osteoarthritis of spine with radiculopathy, lumbar region traMADol (ULTRAM) 50 mg Take 1 tablet (50 mg 40 tablet 0 03/03/20 tabletIndications: Acute total) by mouth every 6 17 17 left-sided low back pain (six) hours as needed for with left-sided sciatica, moderate pain for up to Osteoarthritis of spine 10 days. with radiculopathy, lumbar region celecoxib (CeleBREX) 200 TAKE 1 CAPSULE BY MOUTH 30 capsule 0 05/17/20 Discontin MG capsuleIndications: DAILY 17 17 ued Acute left-sided low back pain with left-sided sciatica, Osteoarthritis of spine with radiculopathy, lumbar region celecoxib (CeleBREX) 200 TAKE 1 CAPSULE BY MOUTH 30 capsule 0 07/06/19 Discontin MG capsuleIndications: EVERY DAY 17 18 ued Acute left-sided low back pain with left-sided sciatica, Osteoarthritis of spine with radiculopathy, lumbar region acetaminophen-codeine Take 1-2 tablets by mouth 30 tablet 0 08/19/19 08/24/19 (TYLENOL WITH CODEINE #3) every 6 (six) hours as 18 18 300-30 mg per needed for moderate pain tabletIndications: HNP (and take with food.) for (herniated nucleus up to 30 doses. pulposus) Active Problems Problem Noted Date Acute left-sided low back pain with left-sided sciatica 03/10/2017 Osteoarthritis of spine with radiculopathy, lumbar region 03/10/2017 Encounters Date Type Specialty Care Team Description 09/23/2017 Refill Orthopedic Surgery Luli Sawyer RN Acute left- sided low back pain with left-sided sciatica; Osteoarthritis of spine with radiculopathy, lumbar region 08/23/2017 Telephone Orthopedic Surgery Luli Sawyer RN 08/19/2017 Refill Orthopedic Surgery Luli Sawyer RN HNP ( herniated nucleus pulposus) (Primary Dx); Acute left-sided low back pain with left-sided sciatica; Osteoarthritis of spine with radiculopathy, lumbar region 08/16/2017 Documentation Orthopedic Surgery Grazyna Rueda, JAMIA 08/15/2017 Office Visit Orthopedic Surgery Mohit Curran MD HNP (herniated nucleus pulposus), lumbar (Primary Dx) 08/15/2017 Documentation Orthopedic Surgery Grazyna Rueda MA 08/12/2017 Hospital Radiology Mohit Curran MD DDD ( degenerative disc Encounter disease), lumbar; Back pain with left-sided radiculopathy 08/11/2017 Office Visit Orthopedic Mohit Smith MD DDD (degenerative disc disease), lumbar (Primary Dx); Back pain with left-sided radiculopathy 08/11/2017 Procedure Pass Radiology 07/06/2017 Refill Orthopedic Surgery Luli Sawyer RN Acute left- sided low back pain with left-sided sciatica; Osteoarthritis of spine with radiculopathy, lumbar region 05/17/2017 Refill Orthopedic Mohit Smith MD Acute left -sided low back pain with left-sided sciatica; Osteoarthritis of spine with radiculopathy, lumbar region 03/30/2017 Refill Orthopedic Mohit Smith MD Acute left -sided low back pain with left-sided sciatica; Osteoarthritis of spine with radiculopathy, lumbar region 03/21/2017 Office Visit Orthopedic Mohit Smith MD Acute left-sided low back pain with left-sided sciatica (Primary Dx); Osteoarthritis of spine with radiculopathy, lumbar region 03/10/2017 Office Visit Orthopedic Mohit Smith MD Acute left-sided low back pain with left-sided sciatica (Primary Dx); Osteoarthritis of spine with radiculopathy, lumbar region 03/03/2017 Office Visit Orthopedic Mohit Smith MD Acute left-sided low back pain with left-sided sciatica (Primary Dx); Osteoarthritis of spine with radiculopathy, lumbar region after 10/28/2016 Social History Tobacco Use Types Packs/Day Years Used Date Never Smoker Smokeless Tobacco: Never Used Alcohol Use Drinks/Week oz/Week Comments No Sex Assigned at Date Recorded Not on file Last Filed Vital Signs Not on file Plan of Treatment Health Maintenance Due Date Last Done Comments COLONOSCOPY 2016 SHINGRIX VACCINE (#1) 2016 INFLUENZA VACCINE 02/01/2018 Results * MRI Lumbar Spine Wo Contrast (08/12/2017 4:20 PM) Specimen Performing Laboratory [facility] [address] [place] [address] Narrative EXAMINATION:MRI LUMBAR SPINE WO CONTRAST CLINICAL HISTORY:M51.36 Other intervertebral disc degenerationlumbar region, M54.10 Radiculopathysite unspecified, low back pain and left leg pain COMPARISON:Lumbar spine radiographs dated March 03, 2017 TECHNIQUE: Multiplanar MRI imaging withoutIV Gadolinium was performed. FINDINGS: There is normal lumbar lordosis and alignment. Vertebral bodies are preserved. Bone marrow is unremarkable with no evidence of acute fracture or suspicious marrow-replacing lesion. Intervertebral disc spaces are relatively preserved. The distal spinal cord appears unremarkable. The conus medullaris terminates at the L1-L2 level and appears unremarkable. The cauda equina is unremarkable. L1-2: Unremarkable. L2-3: Unremarkable. L3-4: Minimal disc bulge. No canal stenosis or foraminal narrowing. L4-5: Mild disc bulge with superimposed left subarticular disc extrusion with inferior migration in the left lateral recess of L5 compromising the left L5 nerve root. There is no canal stenosis. There is no foraminal narrowing. L5-S1: No canal stenosis or foraminal narrowing. Visualized paraspinal soft tissues are unremarkable. IMPRESSION: Left subarticular disc extrusion at L4-L5 level with inferior migration in the left lateral recess of L5 compromising the left L5 nerve root. [id number] Procedure Note Interface, Radiology Results Incoming - 08/12/2017 6:45 PM FOCUS PULLER EXAMINATION: MRI LUMBAR SPINE WO CONTRAST CLINICAL HISTORY: M51.36 Other intervertebral disc degeneration lumbar region , M54.10 Radiculopathy site unspecified, low back pain and left leg pain COMPARISON: Lumbar spine radiographs dated March 03, 2017 TECHNIQUE: Multiplanar MRI imaging without IV Gadolinium was performed. FINDINGS: There is normal lumbar lordosis and alignment. Vertebral bodies are preserved. Bone marrow is unremarkable with no evidence of acute fracture or suspicious marrow-replacing lesion. Intervertebral disc spaces are relatively preserved. The distal spinal cord appears unremarkable. The conus medullaris terminates at the L1-L2 level and appears unremarkable. The cauda equina is unremarkable. L1-2: Unremarkable. L2-3: Unremarkable. L3-4: Minimal disc bulge. No canal stenosis or foraminal narrowing. L4-5: Mild disc bulge with superimposed left subarticular disc extrusion with inferior migration in the left lateral recess of L5 compromising the left L5 nerve root. There is no canal stenosis. There is no foraminal narrowing. L5-S1: No canal stenosis or foraminal narrowing. Visualized paraspinal soft tissues are unremarkable. IMPRESSION: Left subarticular disc extrusion at L4-L5 level with inferior migration in the left lateral recess of L5 compromising the left L5 nerve root. [id number] * XR Lumbar Spine 2 Or 3 Vw (03/03/2017 1:16 PM) Specimen [place] [address] Narrative X-ray of the lumbar spine demonstrates mild degenerative disk disease with some retrolisthesis at L4-L5. after 10/28/2016 Insurance Payer Benefit Subscriber ID Type Phone Address Plan / Group AETNA AETNA xxxxxxxxxx HMO HMO,POS,EP [place], [place] [address]
--- OUTSIDE RECORDS SUMMARY | 2017-10-29 09:47 | XMS REPORT ---
Author Author [facility] Address Unknown Phone Unavailable Care Team Providers Care Chief Lifestyle Officer Name Role Phone TAMRA SUÁREZ Unavailable Unavailable LADARIUS SANTIAGOKANA Unavailable Unavailable JB KING Unavailable Unavailable KEVEN MENDOZA Unavailable Unavailable Problems This patient has no known problems. Allergies, Adverse Reactions, Alerts This patient has no known allergies or adverse reactions. Medications This patient has no known medications. Results Test Description Test Time Test Comments Text Results Atomic Results Result Comments BLOOD CULTURE 2017-10-25 11:00:00 CULTURE (BEAKER) (test cjtu=8450) No growth in 5 days BLOOD [id number] 11:00:00* Test Item Value Reference Range Comments CULTURE (BEAKER) (test jujq=1333) No growth in 5 days URINALYSIS W/ [id number] 05:29:00* Test Item Value Reference Range Comments COLOR (BEAKER) (test klim=394) Yellow CLARITY (BEAKER) (test abvq=808) Clear SPECIFIC GRAVITY UA (BEAKER) (test ujta=697) 1.024 1.001-1.035 PH UA (BEAKER) (test akla=765) 6.0 5.0-8.0 PROTEIN UA (BEAKER) (test ozxz=842) 20 mg/dL Negative GLUCOSE UA (BEAKER) (test bike=774) Negative Negative KETONES UA (BEAKER) (test mqbm=149) >150 mg/dL Negative BILIRUBIN UA (BEAKER) (test jibo=851) Negative Negative BLOOD UA (BEAKER) (test sefa=478) Negative Negative NITRITE UA (BEAKER) (test mlhp=409) Negative Negative LEUKOCYTE ESTERASE UA (BEAKER) (test jobw=805) Negative Negative UROBILINOGEN UA (BEAKER) (test ojle=978) 0.2 mg/dL 0.2-1.0 RBC UA (BEAKER) (test pajb=951) < /HPF WBC UA (BEAKER) (test mkym=967) 2 /HPF MUCUS (BEAKER) (test imrc=4112) Few SOURCE(BEAKER) (test ckqr=6900) Urine, Clean Catch CT, [id number] 04:18:00Reason for exam:->ABDOMINAL PAINWhat is the patient's sedation requirement?->No SedationAddendum BeginsREPORT STATUS:A Correction: The impression should read: Findings suggestive of right colonic diverticulitis. Follow-up colonoscopy is recommended to exclude an underlying lesion. This correction was discussed with Dr. Suárez at the time of dictation. Signed: Parish Schustereport Verified Date/Time: 10/20/2017 04:18:28 Reading Location: [address] Reading RoomAddendum EndsFINAL REPORT CLINICAL HISTORY: Acute abdominal pain. FINDINGS: [...] Pancreas: No significant findings. Bowel: Several colonic diverticula , including one at the ascending colon with [...] an underlying lesion. Cholelithiasis. Signed: Parish Schuster MDReport Verified Date/Time: 10/20/2017 03:44:36 Reading Location: [address] Reading Room Electronically signed by: PARISH SCHUSTER M.D. on 04:18 AM [id number] 02:39:00* Test Item Value Reference Range Comments AMYLASE (BEAKER) (test kyfn=648) 41 U/L 25-125 HEPATIC FUNCTION [id number] 02:39:00* Test Item Value Reference Range Comments TOTAL PROTEIN (BEAKER) (test pwms=037) 7.6 gm/dL 6.0-8.3 ALBUMIN (BEAKER) (test vzuw=6306) 4.0 g/dL 3.5-5.0 BILIRUBIN TOTAL (BEAKER) (test dpux=728) 1.2 mg/dL 0.2-1.2 BILIRUBIN DIRECT (BEAKER) (test zqhd=120) 0.5 mg/dL 0.1-0.5 ALKALINE PHOSPHATASE (BEAKER) (test efjp=164) 40 U/L 40-150 AST (SGOT) (BEAKER) (test byvm=605) 18 U/L 5-34 ALT (SGPT) (BEAKER) (test qpwc=958) 24 U/L 6-55 BASIC METABOLIC [id number] 00:46:00* Test Item Value Reference Range Comments SODIUM (BEAKER) (test aabw=424) 139 meq/L 136-145 POTASSIUM (BEAKER) (test vyju=862) 3.6 meq/L 3.5-5.1 CHLORIDE (BEAKER) (test wkxx=662) 103 meq/L 98-107 CO2 (BEAKER) (test gfbx=936) 26 meq/L 22-29 BLOOD UREA NITROGEN (BEAKER) (test bewt=131) 22 mg/dL 7-21 CREATININE (BEAKER) (test ahpp=643) 1.03 mg/dL 0.57-1.25 GLUCOSE RANDOM (BEAKER) (test xqbe=786) 97 mg/dL 70-105 CALCIUM (BEAKER) (test zjhu=944) 9.5 mg/dL 8.4-10.2 EGFR (BEAKER) (test ersu=3643) 92 mL/min/1.73 sq m ESTIMATED GFR IS NOT ACCURATE CREATININE CLEARANCE IN PREDICTING GLOMERULAR FILTRATION RATE. ESTIMATED GFR IS NOT APPLICABLE FOR DIALYSIS PATIENTS. CBC W/PLT COUNT & AUTO [id number] 00:35:00* Test Item Value Reference Range Comments WHITE BLOOD CELL COUNT (BEAKER) (test grik=334) 8.7 K/ L 3.5-10.5 RED BLOOD CELL COUNT (BEAKER) (test yjfx=984) 4.55 M/ L 4.63-6.08 HEMOGLOBIN (BEAKER) (test pmqv=395) 13.2 GM/DL 13.7-17.5 HEMATOCRIT (BEAKER) (test jner=577) 40.4 % 40.1-51.0 MEAN CORPUSCULAR VOLUME (BEAKER) (test zsgh=561) 88.8 fL 79.0-92.2 MEAN CORPUSCULAR HEMOGLOBIN (BEAKER) (test fcyt=948) 29.0 pg 25.7-32.2 MEAN CORPUSCULAR HEMOGLOBIN CONC (BEAKER) (test gnar=393) 32.7 GM/DL 32.3- 36.5 RED CELL DISTRIBUTION WIDTH (BEAKER) (test mmvd=819) 13.9 % 11.6-14.4 PLATELET COUNT (BEAKER) (test fiar=699) 198 K/CU MM 150-450 MEAN PLATELET VOLUME (BEAKER) (test dxvv=604) 11.5 fL 9.4-12.4 NUCLEATED RED BLOOD CELLS (BEAKER) (test iykg=857) 0 /100 WBC 0-0 NEUTROPHILS RELATIVE PERCENT (BEAKER) (test vcqz=675) 77 % LYMPHOCYTES RELATIVE PERCENT (BEAKER) (test bkza=676) 13 % MONOCYTES RELATIVE PERCENT (BEAKER) (test hyyv=083) 10 % EOSINOPHILS RELATIVE PERCENT (BEAKER) (test zjzz=226) 0 % BASOPHILS RELATIVE PERCENT (BEAKER) (test djsm=207) 0 % NEUTROPHILS ABSOLUTE COUNT (BEAKER) (test qlfz=457) 6.69 K/ L 1.78-5.38 LYMPHOCYTES ABSOLUTE COUNT (BEAKER) (test bton=472) 1.11 K/ L 1.32-3.57 MONOCYTES ABSOLUTE COUNT (BEAKER) (test uooh=302) 0.86 K/ L 0.30-0.82 EOSINOPHILS ABSOLUTE COUNT (BEAKER) (test gakq=028) 0.01 K/ L 0.04-0.54 BASOPHILS ABSOLUTE COUNT (BEAKER) (test ayad=095) 0.01 K/ L 0.01-0.08 IMMATURE GRANULOCYTES-RELATIVE PERCENT (BEAKER) (test svkb=6037) 0 % 0-1 TISSUE [id number] 20:29:00Surgical Pathology Report Case: [id number] Authorizing Provider: Brianda Daly MD Collected: 08/26/20172056 Ordering Location: [facility] PERIOPERATIVE Received: 08/29/2017 0747 SERVICES Pathologist: Jared Hair MD Specimen: Disc L4-5 INTERVERTEBRAL DISC, L4-L5, MICRODISCECTOMY: - FIBROCARTILAGENOUS TISSUE WITH DEGENERATIVE CHANGES Signing Pathologist Direct Phone Line: [phone] and [phone] radiculopathyDisc L4-5The specimen is received in formalin-filled container and labeled with the patient's information and labeled "disc L4-5" and consists of multiple fragments of fields fibrocartilaginous tissue measuring 2.6 x 2 x 0.6 cm in aggregate. Submitted entirely A1 for decalcification. CG/pl Performed.NEEDLE EMG, 2 [id number] 13:51:00INTRAOPERATIVE MONITORING REPORT Patient Name: Brianda Garg [facility] Surgery Date: August 26, 2017 [place]: S/N [id number] Monitoring began at 17:13 and ended at [...] and FPz Free-running EMG of Vastus Lateralis (L2- 4) and Tibialis Anterior (L4-L5) muscle groups. Description [...] monitored remained undisturbed. Mode Baker MD M54.32 (HEMOGRAM ONLY)2017-08-27 03:04:00* Test Item Value Reference Range Comments WHITE BLOOD CELL COUNT (BEAKER) (test oucx=073) 9.2 K/ L 3.5-10.5 RED BLOOD CELL COUNT (BEAKER) (test hknw=710) 4.82 M/ L 4.63-6.08 HEMOGLOBIN (BEAKER) (test ypga=011) 14.2 GM/DL 13.7-17.5 HEMATOCRIT (BEAKER) (test enzs=420) 44.4 % 40.1-51.0 MEAN CORPUSCULAR VOLUME (BEAKER) (test kgrw=382) 92.1 fL 79.0-92.2 MEAN CORPUSCULAR HEMOGLOBIN (BEAKER) (test iuyv=798) 29.5 pg 25.7-32.2 MEAN CORPUSCULAR HEMOGLOBIN CONC (BEAKER) (test dkti=573) 32.0 GM/DL 32.3- 36.5 RED CELL DISTRIBUTION WIDTH (BEAKER) (test xtpl=311) 14.3 % 11.6-14.4 PLATELET COUNT (BEAKER) (test gwzn=578) 218 K/CU MM 150-450 MEAN PLATELET VOLUME (BEAKER) (test zxae=736) 10.8 fL 9.4-12.4 NUCLEATED RED BLOOD CELLS (BEAKER) (test ienw=542) 0 /100 WBC 0-0 FL, TIP SCOURER IN OR/30 MINUTE [id number] 18:47:00Reason for exam:-> decompression l4-5FINAL REPORT Intraoperative fluoroscopy. Clinical history: Decompression L4-L5 [...] Fluoroscopy time: 6.8 seconds. Reference Air Kerma (Ka , r): 2.16 mGy. Impression: Intraoperative exam as described above. Signed: Joon Hyman MDReport Verified Date/Time: 08/26/2017 18:47:17 Reading Location : [address] Consult Reading Room (HEMOGRAM ONLY)2017-08-26 06:07:00* Test Item Value Reference Range Comments WHITE BLOOD CELL COUNT (BEAKER) (test vlpg=247) 7.7 K/ L 3.5-10.5 RED BLOOD CELL COUNT (BEAKER) (test mxpy=817) 4.81 M/ L 4.63-6.08 HEMOGLOBIN (BEAKER) (test numh=000) 14.2 GM/DL 13.7-17.5 HEMATOCRIT (BEAKER) (test amqc=846) 44.9 % 40.1-51.0 MEAN CORPUSCULAR VOLUME (BEAKER) (test budl=303) 93.3 fL 79.0-92.2 MEAN CORPUSCULAR HEMOGLOBIN (BEAKER) (test yoxc=616) 29.5 pg 25.7-32.2 MEAN CORPUSCULAR HEMOGLOBIN CONC (BEAKER) (test ujks=804) 31.6 GM/DL 32.3- 36.5 RED CELL DISTRIBUTION WIDTH (BEAKER) (test qnaq=980) 14.4 % 11.6-14.4 PLATELET COUNT (BEAKER) (test lmem=874) 207 K/CU MM 150-450 MEAN PLATELET VOLUME (BEAKER) (test kgwa=722) 11.3 fL 9.4-12.4 NUCLEATED RED BLOOD CELLS (BEAKER) (test kfog=676) 0 /100 WBC 0-0 [id number] 06:18:00* Test Item Value Reference Range Comments PROTIME (BEAKER) (test bhka=336) 13.3 seconds 11.7-14.7 INR (BEAKER) (test hdoh=361) 1.0 <=5.9 PARTIAL THROMBOPLASTIN TIME (BEAKER) (test tqxl=861) 26.6 seconds 22.5-36.0 RECOMMENDED COUMADIN/WARFARIN INR THERAPY RANGESSTANDARD DOSE: 2.0 - 3.0 Includes: PROPHYLAXIS for venous thrombosis, systemic embolization; TREATMENT for venous thrombosis and/or pulmonary embolus.HIGH RISK: Target INR is 2.5-3.5 for patients with mechanical heart valves.BASIC METABOLIC [id number] 06:30: 00* Test Item Value Reference Range Comments SODIUM (BEAKER) (test sxal=972) 138 meq/L 136-145 POTASSIUM (BEAKER) (test syah=277) 4.4 meq/L 3.5-5.1 CHLORIDE (BEAKER) (test rzvg=876) 104 meq/L 98-107 CO2 (BEAKER) (test ygrl=688) 25 meq/L 22-29 BLOOD UREA NITROGEN (BEAKER) (test npcx=920) 31 mg/dL 7-21 CREATININE (BEAKER) (test qsrl=481) 0.90 mg/dL 0.57-1.25 GLUCOSE RANDOM (BEAKER) (test bcnz=137) 128 mg/dL 70-105 CALCIUM (BEAKER) (test rviv=065) 9.4 mg/dL 8.4-10.2 EGFR (BEAKER) (test htxx=9073) 108 mL/min/1.73 sq m ESTIMATED GFR IS NOT ACCURATE CREATININE CLEARANCE IN PREDICTING GLOMERULAR FILTRATION RATE. ESTIMATED GFR IS NOT APPLICABLE FOR DIALYSIS PATIENTS. BASIC METABOLIC [id number] 04:26:00* Test Item Value Reference Range Comments SODIUM (BEAKER) (test swyl=443) 136 meq/L 136-145 POTASSIUM (BEAKER) (test ftmy=157) 4.6 meq/L 3.5-5.1 CHLORIDE (BEAKER) (test wppw=105) 105 meq/L 98-107 CO2 (BEAKER) (test fotk=747) 24 meq/L 22-29 BLOOD UREA NITROGEN (BEAKER) (test gqmz=483) 27 mg/dL 7-21 CREATININE (BEAKER) (test dxuv=120) 0.95 mg/dL 0.57-1.25 GLUCOSE RANDOM (BEAKER) (test mmlf=843) 123 mg/dL 70-105 CALCIUM (BEAKER) (test heaa=863) 9.5 mg/dL 8.4-10.2 EGFR (BEAKER) (test zpqi=1093) 101 mL/min/1.73 sq m ESTIMATED GFR IS NOT ACCURATE CREATININE CLEARANCE IN PREDICTING GLOMERULAR FILTRATION RATE. ESTIMATED GFR IS NOT APPLICABLE FOR DIALYSIS PATIENTS. BASIC METABOLIC [id number] 06:44:00* Test Item Value Reference Range Comments SODIUM (BEAKER) (test dhuf=043) 134 meq/L 136-145 POTASSIUM (BEAKER) (test prge=368) 4.3 meq/L 3.5-5.1 Specimen slightly hemolyzed CHLORIDE (BEAKER) (test lgua=979) 101 meq/L 98-107 CO2 (BEAKER) (test cwcw=378) 24 meq/L 22-29 BLOOD UREA NITROGEN (BEAKER) (test bgri=287) 23 mg/dL 7-21 CREATININE (BEAKER) (test yegj=080) 0.97 mg/dL 0.57-1.25 Specimen slightly hemolyzed GLUCOSE RANDOM (BEAKER) (test laxp=189) 143 mg/dL 70-105 CALCIUM (BEAKER) (test boes=129) 9.6 mg/dL 8.4-10.2 EGFR (BEAKER) (test tqwc=8624) 99 mL/min/1.73 sq m ESTIMATED GFR IS NOT ACCURATE CREATININE CLEARANCE IN PREDICTING GLOMERULAR FILTRATION RATE. ESTIMATED GFR IS NOT APPLICABLE FOR DIALYSIS PATIENTS. BASIC METABOLIC [id number] 12:17:00* Test Item Value Reference Range Comments SODIUM (BEAKER) (test bpow=282) 138 meq/L 136-145 POTASSIUM (BEAKER) (test yuqn=045) 3.7 meq/L 3.5-5.1 CHLORIDE (BEAKER) (test qphk=886) 100 meq/L 98-107 CO2 (BEAKER) (test hwzb=111) 28 meq/L 22-29 BLOOD UREA NITROGEN (BEAKER) (test xatv=380) 18 mg/dL 7-21 CREATININE (BEAKER) (test onpq=273) 1.08 mg/dL 0.57-1.25 GLUCOSE RANDOM (BEAKER) (test nqrc=081) 126 mg/dL 70-105 CALCIUM (BEAKER) (test payc=695) 9.6 mg/dL 8.4-10.2 EGFR (BEAKER) (test kjbg=4741) 87 mL/min/1.73 sq m ESTIMATED GFR IS NOT ACCURATE CREATININE CLEARANCE IN PREDICTING GLOMERULAR FILTRATION RATE. ESTIMATED GFR IS NOT APPLICABLE FOR DIALYSIS PATIENTS. CBC W/PLT COUNT & AUTO [id number] 11:58:00* Test Item Value Reference Range Comments WHITE BLOOD CELL COUNT (BEAKER) (test hsgz=075) 4.8 K/ L 3.5-10.5 RED BLOOD CELL COUNT (BEAKER) (test wjva=378) 5.05 M/ L 4.63-6.08 HEMOGLOBIN (BEAKER) (test zadx=976) 14.9 GM/DL 13.7-17.5 HEMATOCRIT (BEAKER) (test bdbs=237) 45.2 % 40.1-51.0 MEAN CORPUSCULAR VOLUME (BEAKER) (test jdce=963) 89.5 fL 79.0-92.2 MEAN CORPUSCULAR HEMOGLOBIN (BEAKER) (test ncmv=339) 29.5 pg 25.7-32.2 MEAN CORPUSCULAR HEMOGLOBIN CONC (BEAKER) (test trpo=094) 33.0 GM/DL 32.3- 36.5 RED CELL DISTRIBUTION WIDTH (BEAKER) (test iaov=291) 14.0 % 11.6-14.4 PLATELET COUNT (BEAKER) (test plfr=621) 213 K/CU MM 150-450 MEAN PLATELET VOLUME (BEAKER) (test cipi=672) 11.3 fL 9.4-12.4 NUCLEATED RED BLOOD CELLS (BEAKER) (test rovu=879) 0 /100 WBC 0-0 NEUTROPHILS RELATIVE PERCENT (BEAKER) (test ihre=031) 53 % LYMPHOCYTES RELATIVE PERCENT (BEAKER) (test xpti=344) 36 % MONOCYTES RELATIVE PERCENT (BEAKER) (test pbaw=631) 8 % EOSINOPHILS RELATIVE PERCENT (BEAKER) (test pidv=968) 2 % BASOPHILS RELATIVE PERCENT (BEAKER) (test tkvn=521) 0 % NEUTROPHILS ABSOLUTE COUNT (BEAKER) (test nqff=444) 2.51 K/ L 1.78-5.38 LYMPHOCYTES ABSOLUTE COUNT (BEAKER) (test woms=273) 1.70 K/ L 1.32-3.57 MONOCYTES ABSOLUTE COUNT (BEAKER) (test jwrv=982) 0.40 K/ L 0.30-0.82 EOSINOPHILS ABSOLUTE COUNT (BEAKER) (test qews=217) 0.10 K/ L 0.04-0.54 BASOPHILS ABSOLUTE COUNT (BEAKER) (test xhsy=151) 0.01 K/ L 0.01-0.08 IMMATURE GRANULOCYTES-RELATIVE PERCENT (BEAKER) (test stie=2752) 1 % 0-1 MR, SPINE, LUMBAR, WITHOUT [id number] 10:47:00FINAL REPORT MRI lumbar spine without contrast. CLINICAL HISTORY: Lumbar radiculopathy, >6wks conservative tx, persistent-progressive sx, surgical candidateon eliquis, recent epidural steroid injection, worsening pain. [...] The conus medullaris terminates at L1. At T12 -L1, unremarkable At L1-L2, unremarkable At L2-L3, unremarkable [...] mm SI. It effaces the left lateral recess , likely compressing the descending left L5 nerve [...] significant central canal narrowing at this level, [id number]-nz-hqofzxne bilateral foraminal stenosis. The visualized paraspinal and retroperitoneal soft tissues are unremarkable. IMPRESSION: Left subarticular disc extrusion/ sequestration at L4-L5, effacing the left lateral recess, likely exerting mass effect upon the descending left L5 nerve root. The significance of this finding should be correlated with patient's symptoms. Previously seen disc extrusion at L5-S1 is no longer identified. Signed: Ryann Alexandereport Verified Date/Time: 10:47:27 Reading Location: [facility] C013V Neuro Reading Room C METABOLIC [id number] 08:04:00* Test Item Value Reference Range Comments SODIUM (BEAKER) (test flbu=016) 142 meq/L 136-145 POTASSIUM (BEAKER) (test rgwo=788) 4.1 meq/L 3.5-5.1 CHLORIDE (BEAKER) (test xljo=425) 107 meq/L 98-107 CO2 (BEAKER) (test dird=517) 27 meq/L 22-29 BLOOD UREA NITROGEN (BEAKER) (test xphg=435) 25 mg/dL 7-21 CREATININE (BEAKER) (test rkzz=892) 0.92 mg/dL 0.57-1.25 GLUCOSE RANDOM (BEAKER) (test zzwu=861) 103 mg/dL 70-105 CALCIUM (BEAKER) (test notr=970) 9.0 mg/dL 8.4-10.2 EGFR (BEAKER) (test gdnb=1816) 105 mL/min/1.73 sq m ESTIMATED GFR IS NOT ACCURATE CREATININE CLEARANCE IN PREDICTING GLOMERULAR FILTRATION RATE. ESTIMATED GFR IS NOT APPLICABLE FOR DIALYSIS PATIENTS. CBC (HEMOGRAM ONLY)2017-07-14 06:43:00* Test Item Value Reference Range Comments WHITE BLOOD CELL COUNT (BEAKER) (test chqu=946) 7.6 K/ L 3.5-10.5 RED BLOOD CELL COUNT (BEAKER) (test xjbs=032) 4.46 M/ L 4.63-6.08 HEMOGLOBIN (BEAKER) (test eszk=031) 13.4 GM/DL 13.7-17.5 HEMATOCRIT (BEAKER) (test xjrj=066) 40.9 % 40.1-51.0 MEAN CORPUSCULAR VOLUME (BEAKER) (test bjzc=521) 91.7 fL 79.0-92.2 MEAN CORPUSCULAR HEMOGLOBIN (BEAKER) (test yzlq=549) 30.0 pg 25.7-32.2 MEAN CORPUSCULAR HEMOGLOBIN CONC (BEAKER) (test odih=453) 32.8 GM/DL 32.3- 36.5 RED CELL DISTRIBUTION WIDTH (BEAKER) (test vgyf=912) 14.0 % 11.6-14.4 PLATELET COUNT (BEAKER) (test kkjf=590) 139 K/CU MM 150-450 MEAN PLATELET VOLUME (BEAKER) (test tmjk=000) 12.0 fL 9.4-12.4 NUCLEATED RED BLOOD CELLS (BEAKER) (test gjvn=901) 0 /100 WBC 0-0 [id number] 09:56:00* Test Item Value Reference Range Comments ACTIVATED CLOTTING TIME (BEAKER) (test gzwi=466) 307 sec TESTED AT [place] [address] [id number] 09:20:00* Test Item Value Reference Range Comments ACTIVATED CLOTTING TIME (BEAKER) (test pdjs=628) 318 sec TESTED AT [place] [address] [id number] 08:56:00* Test Item Value Reference Range Comments ACTIVATED CLOTTING TIME (BEAKER) (test lbvh=703) 301 sec TESTED AT [place] [address] [id number] 08:47:00* Test Item Value Reference Range Comments ACTIVATED CLOTTING TIME (BEAKER) (test ldoz=878) 279 sec TESTED AT [place] [id number] BASIC METABOLIC [id number] 07:30:00* Test Item Value Reference Range Comments SODIUM (BEAKER) (test suzv=651) 141 meq/L 136-145 POTASSIUM (BEAKER) (test pqaf=114) 3.5 meq/L 3.5-5.1 Specimen slightly hemolyzed CHLORIDE (BEAKER) (test mhly=130) 106 meq/L 98-107 CO2 (BEAKER) (test yicd=239) 26 meq/L 22-29 BLOOD UREA NITROGEN (BEAKER) (test zfdm=191) 30 mg/dL 7-21 CREATININE (BEAKER) (test qltg=015) 1.14 mg/dL 0.57-1.25 Specimen slightly hemolyzed GLUCOSE RANDOM (BEAKER) (test yzpz=689) 87 mg/dL 70-105 CALCIUM (BEAKER) (test amuf=055) 9.3 mg/dL 8.4-10.2 EGFR (BEAKER) (test yxsz=9395) 82 mL/min/1.73 sq m ESTIMATED GFR IS NOT ACCURATE CREATININE CLEARANCE IN PREDICTING GLOMERULAR FILTRATION RATE. ESTIMATED GFR IS NOT APPLICABLE FOR DIALYSIS PATIENTS. CBC (HEMOGRAM ONLY)2017-07-13 06:56:00* Test Item Value Reference Range Comments WHITE BLOOD CELL COUNT (BEAKER) (test losk=938) 6.1 K/ L 3.5-10.5 RED BLOOD CELL COUNT (BEAKER) (test bebb=603) 4.76 M/ L 4.63-6.08 HEMOGLOBIN (BEAKER) (test dowx=055) 14.4 GM/DL 13.7-17.5 HEMATOCRIT (BEAKER) (test vgbf=249) 43.1 % 40.1-51.0 MEAN CORPUSCULAR VOLUME (BEAKER) (test oppy=251) 90.5 fL 79.0-92.2 MEAN CORPUSCULAR HEMOGLOBIN (BEAKER) (test xrnr=096) 30.3 pg 25.7-32.2 MEAN CORPUSCULAR HEMOGLOBIN CONC (BEAKER) (test kybn=825) 33.4 GM/DL 32.3- 36.5 RED CELL DISTRIBUTION WIDTH (BEAKER) (test byae=995) 13.4 % 11.6-14.4 PLATELET COUNT (BEAKER) (test maft=953) 193 K/CU MM 150-450 MEAN PLATELET VOLUME (BEAKER) (test xghr=404) 11.7 fL 9.4-12.4 NUCLEATED RED BLOOD CELLS (BEAKER) (test xzyl=607) 0 /100 WBC 0-0 CT, HEART, [id number] 18:39:00Reason for Exam:->Encounter for screening for cardiovascular disorders [Z13.6]Chronic atrial fibrillation [I48.2]Precordial pain [R07.2]Other chest pain [R07.89]Addendum BeginsREPORT STATUS:A Addendum: July 11, 2017 at 1840 hours I have reviewed the CT images for this study and I concur with the nonvascular imaging findings as dictated. Signed: Meme Pino Verified Date/Time: 07/11/2017 18:39: 30 Reading Location: [facility] B1 P048 Angio Body Reading RoomAddendum EndsFINAL REPORT CT angiography of the pulmonary veins, [...] by the interpreting physician using an independent ([employer] [facility]) workstation. Please refer to the contrast sheet [...] vein Major axis Minor axis Cross-sectional area Right upper 17 mm 15 mm 2.2 ku4Immbk middle 13 mm 10 mm 0.9 jj8Lzjgy lower 22 mm 21 mm 3.7 ih7Qzvs upper 18 mm 16 mm 2.2 cf0Enlr lower 22 mm 13 mm 2.4 cm2 [...] dictated regarding the non-vascular findings by the Railroad Car Checker Radiologist. Signed: Ricky Mueller MDReport Verified Date/Time: 07/11/2017 08:51:54 Reading Location: [place] [address] Cardiology MRI REHENSIVE METABOLIC [id number] 08:18:00* Test Item Value Reference Range Comments TOTAL PROTEIN (BEAKER) (test cnni=285) 7.3 gm/dL 6.0-8.3 ALBUMIN (BEAKER) (test wtcq=5246) 3.8 g/dL 3.5-5.0 ALKALINE PHOSPHATASE (BEAKER) (test kglw=789) 29 U/L 40-150 BILIRUBIN TOTAL (BEAKER) (test keuy=567) 0.4 mg/dL 0.2-1.2 SODIUM (BEAKER) (test czqr=350) 141 meq/L 136-145 POTASSIUM (BEAKER) (test ihzo=121) 3.2 meq/L 3.5-5.1 CHLORIDE (BEAKER) (test lypc=835) 105 meq/L 98-107 CO2 (BEAKER) (test niww=733) 27 meq/L 22-29 BLOOD UREA NITROGEN (BEAKER) (test grwp=199) 27 mg/dL 7-21 CREATININE (BEAKER) (test cqpr=334) 1.28 mg/dL 0.57-1.25 GLUCOSE RANDOM (BEAKER) (test yytm=188) 103 mg/dL 70-105 CALCIUM (BEAKER) (test atrb=081) 8.7 mg/dL 8.4-10.2 AST (SGOT) (BEAKER) (test fvjg=247) 27 U/L 5-34 ALT (SGPT) (BEAKER) (test ezfe=166) 39 U/L 6-55 EGFR (BEAKER) (test ekgo=0147) 72 mL/min/1.73 sq m ESTIMATED GFR IS NOT ACCURATE CREATININE CLEARANCE IN PREDICTING GLOMERULAR FILTRATION RATE. ESTIMATED GFR IS NOT APPLICABLE FOR DIALYSIS PATIENTS. CBC (HEMOGRAM ONLY)2017-07-11 06:51:00* Test Item Value Reference Range Comments WHITE BLOOD CELL COUNT (BEAKER) (test hyid=447) 4.4 K/ L 3.5-10.5 RED BLOOD CELL COUNT (BEAKER) (test qdta=155) 4.51 M/ L 4.63-6.08 HEMOGLOBIN (BEAKER) (test agoo=021) 13.6 GM/DL 13.7-17.5 HEMATOCRIT (BEAKER) (test vxxs=753) 40.7 % 40.1-51.0 MEAN CORPUSCULAR VOLUME (BEAKER) (test hdeq=989) 90.2 fL 79.0-92.2 MEAN CORPUSCULAR HEMOGLOBIN (BEAKER) (test whzo=816) 30.2 pg 25.7-32.2 MEAN CORPUSCULAR HEMOGLOBIN CONC (BEAKER) (test trch=211) 33.4 GM/DL 32.3- 36.5 RED CELL DISTRIBUTION WIDTH (BEAKER) (test gcqg=286) 13.6 % 11.6-14.4 PLATELET COUNT (BEAKER) (test laiz=988) 186 K/CU MM 150-450 MEAN PLATELET VOLUME (BEAKER) (test bwjj=808) 11.3 fL 9.4-12.4 NUCLEATED RED BLOOD CELLS (BEAKER) (test mawe=326) 0 /100 WBC 0-0 RAD, CHEST, 2 [id number] 12:53:00Reason for exam:->AFFINAL REPORT PA and Lateral views of the chest dated 05/28/2017 COMPARISON: July 12, 2014 Clinical information: AF Comment: Heart is normal in size. Pulmonary vasculature is unremarkable. Lungs are clear. No pulmonary infiltrate or pleural effusion is present. Impression: No active cardiopulmonary disease or interval change. Signed: Vaishali Mcallister MDReport Verified Date/Time: 2016 12:53:01 Reading Location: [address] Body Reading Room /FREE T4 IF [id number] 10:49:00* Test Item Value Reference Range Comments THYROID STIMULATING HORMONE (BEAKER) (test llxq=329) 1.73 uIU/mL 0.35-4.94 LIPID [id number] 10:28:00* Test Item Value Reference Range Comments TRIGLYCERIDES (BEAKER) (test xxbo=368) 153 mg/dL CHOLESTEROL (BEAKER) (test dmre=499) 218 mg/dL HDL CHOLESTEROL (BEAKER) (test qclh=142) 43 mg/dL LDL CHOLESTEROL CALCULATED (BEAKER) (test uioj=533) 144 mg/dL Triglyceride Reference Range: Low Risk <150 Borderline 150-199 High Risk 200-499 Very High Risk >=500Cholesterol Reference Range: Low Risk <200 Borderline 200-239 High Risk >240HDL Cholesterol Reference Range: Low Risk >=60 High Risk <40LDL Cholesterol Reference Range: Optimal <100 Near Optimal 100-129 Borderline 130-159 High 160-189 Very High >=190 TROPONIN [id number] 05:38:00* Test Item Value Reference Range Comments TROPONIN I (BEAKER) (test lsdb=003) < ng/mL 0.00-0.03 Troponin I (TnI) levels must be interpreted [...] failure, acidosis, acute neurological disease, and persistent tachyarrhythmia.BASIC METABOLIC [id number] 05:31:00 * Test Item Value Reference Range Comments SODIUM (BEAKER) (test ixzf=604) 140 meq/L 136-145 POTASSIUM (BEAKER) (test hhcg=647) 3.7 meq/L 3.5-5.1 Specimen slightly hemolyzed CHLORIDE (BEAKER) (test vtha=743) 108 meq/L 98-107 CO2 (BEAKER) (test sqff=434) 25 meq/L 22-29 BLOOD UREA NITROGEN (BEAKER) (test tqcx=036) 24 mg/dL 7-21 CREATININE (BEAKER) (test xoke=402) 0.96 mg/dL 0.57-1.25 Specimen slightly hemolyzed GLUCOSE RANDOM (BEAKER) (test iyfa=707) 104 mg/dL 70-105 CALCIUM (BEAKER) (test hjpu=788) 9.4 mg/dL 8.4-10.2 EGFR (BEAKER) (test ynyn=5829) 100 mL/min/1.73 sq m ESTIMATED GFR IS NOT ACCURATE CREATININE CLEARANCE IN PREDICTING GLOMERULAR FILTRATION RATE. ESTIMATED GFR IS NOT APPLICABLE FOR DIALYSIS PATIENTS. PROTHROMBIN TIME/[id number] 04:42:00* Test Item Value Reference Range Comments PROTIME (BEAKER) (test mmde=831) 12.7 seconds 11.7-14.7 INR (BEAKER) (test idig=159) 1.0 <=5.9 RECOMMENDED COUMADIN/WARFARIN INR THERAPY RANGESSTANDARD DOSE: 2.0 - 3.0 Includes: PROPHYLAXIS for venous thrombosis, systemic embolization; TREATMENT for venous thrombosis and/or pulmonary embolus.HIGH RISK: Target INR is 2.5-3.5 for patients with mechanical heart valves.CBC W/PLT COUNT & AUTO [id number] 04:34:00* Test Item Value Reference Range Comments WHITE BLOOD CELL COUNT (BEAKER) (test pkgx=021) 4.2 K/ L 3.5-10.5 RED BLOOD CELL COUNT (BEAKER) (test hqbj=545) 4.71 M/ L 4.63-6.08 HEMOGLOBIN (BEAKER) (test jmbk=933) 14.3 GM/DL 13.7-17.5 HEMATOCRIT (BEAKER) (test qxot=460) 42.6 % 40.1-51.0 MEAN CORPUSCULAR VOLUME (BEAKER) (test ikxr=455) 90.4 fL 79.0-92.2 MEAN CORPUSCULAR HEMOGLOBIN (BEAKER) (test iflv=485) 30.4 pg 25.7-32.2 MEAN CORPUSCULAR HEMOGLOBIN CONC (BEAKER) (test ivac=143) 33.6 GM/DL 32.3- 36.5 RED CELL DISTRIBUTION WIDTH (BEAKER) (test xdgw=234) 13.3 % 11.6-14.4 PLATELET COUNT (BEAKER) (test iuzf=254) 188 K/CU MM 150-450 MEAN PLATELET VOLUME (BEAKER) (test yldj=672) 11.5 fL 9.4-12.4 NUCLEATED RED BLOOD CELLS (BEAKER) (test nihz=393) 0 /100 WBC 0-0 NEUTROPHILS RELATIVE PERCENT (BEAKER) (test qyyo=380) 47 % LYMPHOCYTES RELATIVE PERCENT (BEAKER) (test anfs=655) 40 % MONOCYTES RELATIVE PERCENT (BEAKER) (test tfom=250) 11 % EOSINOPHILS RELATIVE PERCENT (BEAKER) (test ulqm=582) 1 % BASOPHILS RELATIVE PERCENT (BEAKER) (test zwwl=621) 1 % NEUTROPHILS ABSOLUTE COUNT (BEAKER) (test afxd=799) 1.95 K/ L 1.78-5.38 LYMPHOCYTES ABSOLUTE COUNT (BEAKER) (test gkjx=084) 1.65 K/ L 1.32-3.57 MONOCYTES ABSOLUTE COUNT (BEAKER) (test zsom=709) 0.46 K/ L 0.30-0.82 EOSINOPHILS ABSOLUTE COUNT (BEAKER) (test dkdg=241) 0.06 K/ L 0.04-0.54 BASOPHILS ABSOLUTE COUNT (BEAKER) (test btgs=626) 0.03 K/ L 0.01-0.08 IMMATURE GRANULOCYTES-RELATIVE PERCENT (BEAKER) (test wsyf=4781) 0 % 0-1
[2017-10-29] MEDS ORDERED: SODIUM CHLORIDE 0.9% 1000ML 1,000 ML IV STA (10:08)
[2017-10-29] MEDS ORDERED: PANTOPRAZOLE 40 MG 10ML VIAL IV STA (10:08)
[2017-10-29 10:20] LABS: BASOPHILS % 0.5 % (0.0-1.0); EOSINOPHILS # (AUTO) 0.1 (0.0-0.4); EOSINOPHILS % 1.3 % (0.0-6.0); HEMATOCRIT 37.9 % (38.2-49.6); HEMOGLOBIN 12.8 g/dL (14.0-18.0); LYMPHOCYTES # (AUTO) 1.9 (1.0-3.2); LYMPHOCYTES % 34.9 % (18.0-39.1); MEAN CORPUSCULAR HEMOGLOBIN 29.6 pg (28-32); MEAN CORPUSCULAR HGB CONC 33.8 g/dL (31-35); MEAN CORPUSCULAR VOLUME 87.5 fL (81-99); MONOCYTES # (AUTO) 0.6 (0.2-0.8); MONOCYTES % 10.6 % (4.4-11.3); NEUTROPHILS # (AUTO) 2.9 (2.1-6.9); NEUTROPHILS % 52.5 % (38.7-80.0); PLATELET COUNT 230 x10e3/uL (140-360); RED BLOOD COUNT 4.33 x10e6/uL (4.3-5.7)
[2017-10-29 10:31] LABS: INR 1.11; PROTHROMBIN TIME 13.5 seconds (11.9-14.5)
[2017-10-29 10:32] LABS: PARTIAL THROMBOPLASTIN TIME 30.6 seconds (23.8-35.5)
[2017-10-29 10:40] LABS: ALANINE AMINOTRANSFERASE 21 IU/L (0-55); ALBUMIN 3.4 g/dL (3.5-5.0); ALBUMIN/GLOBULIN RATIO 0.8 (0.8-2.0); ALKALINE PHOSPHATASE 34 IU/L (40-150); ANION GAP 10.4 mmol/L (8-16); BLOOD UREA NITROGEN 23 mg/dL (7-26); BUN/CREATININE RATIO 23 (6-25); CALCIUM 9.8 mg/dL (8.4-10.2); CARBON DIOXIDE 29 mmol/L (22-29); CHLORIDE 104 mmol/L (98-107); CREATINE KINASE 93 IU/L (30-200); CREATININE, SERUM 0.99 mg/dL (0.72-1.25); EST GLOMERULAR FILTRATION RATE > 60 ML/MIN (60-); GLUCOSE 100 mg/dL (74-118); MAGNESIUM 1.7 MG/DL (1.3-2.1); POTASSIUM 3.4 mmol/L (3.5-5.1); SODIUM 140 mmol/L (136-145)
[2017-10-29 10:55] LABS: B-TYPE NATRIURETIC PEPTIDE2 24.8 pg/mL (0-100)
[2017-10-29 10:59] LABS: THYROID STIMULATING HORMONE 0.642 uIU/mL (0.350-4.940)
--- NOTE | 2017-10-29 11:32 | Diagnostic Imaging Report ---
EXAMINATION: Chest, CHEST SINGLE (PORTABLE) INDICATION: Chest pain COMPARISON: None FINDINGS: LINES: None. Heart: Normal cardiac silhouette. Vascular: The pulmonary vasculature is within normal limits. Mediastinum: No mediastinal, hilar, or axillary mass or lymphadenopathy. Lungs: No parenchymal mass. No focal consolidation. Pleura: No pleural effusion. No pneumothorax. Bones: No acute osseous abnormality. Degenerative changes of the thoracic spine. Soft tissues: Normal. Impression: No acute radiographic abnormality. Signed by: Dr. Farooq Sánchez M.D. on 10/29/2017 11:28 AM
--- NOTE | 2017-10-29 11:39 | Diagnostic Imaging Report ---
Exam: Head CT without contrast History: Syncope, dizziness. Comparison studies: None Technique: Axial images were obtained from the skull base to the vertex. Coronal and sagittal images reconstructed from the axial data. Intravenous contrast: None Findings: Scalp: No abnormalities. Bones: No fractures, blastic or lytic lesions. Brain sulci: Appropriate for age. Ventricles: Normal in size and configuration. No hydrocephalus. Extra-axial spaces: No masses, no fluid collection. Parenchyma: No abnormal densities. No masses, hemorrhage, acute or chronic vascular insults. Sellar/suprasellar region: No abnormalities. Craniocervical junction: Patent foramen magnum. No Chiari one malformation. Incidental findings: Dolichocephalic appearance of the head. Hypo pneumatization and sclerosis of the right mastoid is also made with the colon from cardiopulmonary process. IMPRESSION: No acute intracranial abnormality, particularly no evidence of hemorrhage. Preliminary report was provided by neuroradiology fellow, Dr.Thach Anette MD on 10/29/2017 11:39 AM. Signed by: Dr. Patience York M.D. on 10/29/2017 4:27 PM
[2017-10-29 11:40] LABS: CLARITY,URINE CLEAR (CLEAR); COLOR,URINE YELLOW (YELLOW)
[2017-10-29 11:41] LABS: KETONES,URINE NEGATIVE (NEGATIVE); LEUKOCYTE ESTERASE ,URINE NEGATIVE (NEGATIVE); NITRITE,URINE NEGATIVE (NEGATIVE); PROTEIN,URINE DIPSTICK NEGATIVE (NEGATIVE)
[2017-10-29 11:42] LABS: BILIRUBIN,URINE NEGATIVE (NEGATIVE); URINE UROBILINOGEN 0.2 mg/dL (0.2 - 1)
[2017-10-29 11:51] LABS: EPITHELIAL CELLS,URINE FEW /LPF; WBC,URINE (MAN) 0-5 /HPF (0-5)
[2017-10-29 11:52] LABS: BACTERIA,URINE RARE /HPF
--- NOTE | 2017-10-29 12:18 | Diagnostic Imaging Report ---
EXAM: CT Chest WITH contrast INDICATION: Chest pain COMPARISON: None available TECHNIQUE: Chest was scanned utilizing a multidetector helical scanner from the lung apex through the level of the diaphragm after administration of IV contrast. Coronal and sagittal reconstructions were submitted for interpretation. Protocol: Pulmonary embolus protocol IV CONTRAST: 100 mL of Isovue 370 COMPLICATIONS: None RADIATION DOSE: Total exam DLP: 517.5 mGy*cm. CTDIvol has been reviewed. It is below the limits set by the Radiation Protocol Committee (RPC). FINDINGS: LINES/ TUBES: None. Heart: No cardiomegaly. No pericardial effusion. Vessels: No intraluminal filling defect within the pulmonary arteries to the segmental level. Normal thoracic aorta and coronary arteries. Mediastinum: No mediastinal or hilar mass or lymphadenopathy. Normal thyroid. Lungs: No parenchymal mass. No focal consolidation. Normal parenchyma. Pleura: No pleural effusion. No pneumothorax. Soft tissues: Normal. No axillary mass or lymphadenopathy. Bones: No acute osseous abnormality. Degenerative changes of the thoracic spine. Adrenal glands: No adrenal nodules.. Abdomen: The partially visualized portions of the upper abdomen are unremarkable. Cholelithiasis. IMPRESSION: 1. No evidence of pulmonary arterial embolism or thrombosis to the segmental level. 2. No acute abnormality of the chest. 3. Cholelithiasis. Signed by: Dr. Farooq Sánchez M.D. on 10/29/2017 12:14 PM
[2017-10-29] MEDS ORDERED: MELOXICAM15 MG PO (13:04)
[2017-10-29] MEDS ORDERED: LISINOPRIL-HCT1 EAC2 PO (13:04)
[2017-10-29] MEDS ORDERED: METRONIDAZOLE500 MG (13:04)
[2017-10-29] MEDS ORDERED: METOPROLOL SUCC50 MG PO (13:04)
[2017-10-29] MEDS ORDERED: AMIODARONE HCL200 MG PO (13:04)
[2017-10-29] MEDS ORDERED: CIPROFLOXACIN500 MG (13:04)
--- OUTSIDE RECORDS SUMMARY | 2017-10-29 13:14 | XMS REPORT | Clinical Summary ---
Author Author [facility] Address Unknown Phone Unavailable Care Team Providers Care Greens Keeper Name Role Phone Beka Ayala MD PCP [...] Contrast (08/12/2017 4:20 PM) Specimen Performing Laboratory [facility] [address] [place] [address] Narrative EXAMINATION:MRI LUMBAR SPINE WO CONTRAST CLINICAL [...] L5 compromising the left L5 nerve root. [id number] Procedure Note Interface, Radiology Results Incoming - 08/12/2017 6:45 PM FAN RUNNER EXAMINATION: MRI LUMBAR SPINE WO CONTRAST CLINICAL [...] L5 compromising the left L5 nerve root. [id number] * XR Lumbar Spine 2 Or 3 Vw (03/03/2017 1:16 PM) [place] [address] Narrative X-ray of the lumbar spine demonstrates mild degenerative disk disease with some retrolisthesis at L4-L5. after 10/28/2016 Insurance Payer Benefit Subscriber ID Type Phone Address Plan / Group AETNA AETNA xxxxxxxxxx HMO HMO,POS,EP O, [place] [address]
--- OUTSIDE RECORDS SUMMARY | 2017-10-29 13:15 | XMS REPORT | Clinical Summary ---
Author Author HO [facility] Address Unknown Phone Unavailable Care Team Providers Care Craps Dealer Name Role Phone PCP Unavailable Allergies Active [...] Care Team Description 10/20/2017 [facility] Diverticulitis of large intestine without perforation or abscess without bleeding (Primary Dx);Calculus of gallbladder without cholecystitis without obstruction 08/26/2017 Procedure Pass 08/26/2017 Surgery Brianda Daly MD LAMINECTOMY,LUMBAR W/DISCECTOMY 08/25/2017 Anesthesia Misty Mcarthur, Event TRANSPORTATION EQUIPMENT PAINTER 08/21/2017 [facility] General Internal Medicine Elizabeth Ortega MD Sciatica of left side - Encounter Jerad Zamora MD (Primary Dx);Intractable 08/27/2017 Braydon Felix MD back pain 08/13/2017 Emergency Emergency Medicine Anthony Manley MD Lumbar herniated disc (Primary Dx);Acute left-sided low back pain with left-sided sciatica;Hypertension, uncontrolled;Chronic anticoagulation;History of atrial fibrillation 07/13/2017 [facility] Cardiology Bebo Kaye MD S/P ablation [...] 05/28/2017 Orders Only General Internal Medicine 12/22/2016 [facility] Alex Ayala MD Neck pain Encounter [...] Not on file Implants Implanted Type Area Residential Driver Device Expiration Model / Identifier Date Serial / Lot Mynxgrip Vascular Closure Device Cardiovasc N/A: Groin [facility] [id number] 06/02/2019 / Implanted: Qty: 1 on 07/13/2017 by ciara Montes / Bebo Kaye MD [id number] [facility] Full Strlprep 10ml Cement/Itz Left: Back TSAI:BIOSCI [id number] / [id number] - [id number] ler/Adhesi / Implanted: Qty: 1 on 08/26/2017 by tra [id number] Brianda Daly MD Procedures Procedure Name Priority Date/Time Associated Diagnosis Comments PROCEDURE W/ 08/26/2017 Lumbar radiculopathy INTRAOPERATIVE 1:55 PM PROPERTY INSURANCE AGENT NEUROMONITORING Special Needs (PRONE POSITION,W ILSON FRAME, MICROSCOPE , NEURO-KIM TORING: EMG, METRX SYSTEM) LAMINECTOMY,LUMBAR 08/26/2017 Lumbar radiculopathy W/DISCECTOMY 1:55 PM PROPERTY INSURANCE AGENT Special Needs (PRONE POSITION,W ILSON FRAME, MICROSCOPE , NEURO-KIM TORING: EMG, METRX SYSTEM) EPS & PULMONARY VEIN 07/13/2017 I48.91 AFIB (PVI) W/ ROXY & GENERAL 7:30 AM PROPERTY INSURANCE AGENT ANESTHESIA Case Notes (1) Case, 6T OP, W/G Anesthesia after 10/28/2016 Results * Urinalysis w/Microscopic - Clean Catch (10/20/2017 4:52 AM) Component Value Ref Range Color, UA Yellow Clarity, UA Clear Specific [place], UA 1.024 1.001 - 1.035 pH, UA [...] Performing Laboratory Urine - Urine, Clean [facility] Catch [address] [place] [address] * CT abdomen pelvis with IV contrast (10/20/2017 3:16 AM) Specimen Performing Laboratory GE [facility] Narrative Addendum Begins REPORT STATUS:A Correction: The impression should read: Findings suggestive of right colonic diverticulitis. Follow-up colonoscopy is recommended to exclude an underlying lesion. This correction was discussed with Dr. Akhtar at the time of dictation. Signed: Parish Schuster MD Report Verified Date/Time:10/20/2017 04:18:28 Reading Location: [address] Reading Room Addendum Ends FINAL REPORT [...] MD Report Verified Date/Time:10/20/2017 03:44:36 Reading Location: [address] Room Procedure Note Interface, External Ris In - 10/20/2017 4:20 AM CDT Addendum Begins REPORT STATUS:A Correction: The impression should read: Findings suggestive of right colonic diverticulitis. Follow-up colonoscopy is recommended to exclude an underlying lesion. This correction was discussed with Dr. Akhtar at the time of dictation. Signed: Parish Schuster MD Report Verified Date/Time: 10/20/2017 04:18:28 Reading Location: [address] Reading Room Addendum Ends FINAL REPORT [...] Report Verified Date/Time: 10/20/2017 03:44:36 Reading Location: [address] Reading Room * Blood culture (10/20/2017 2:16 AM) Only the most recent of 2 results within the time period is included. Component Value Ref Range Result No growth in 5 days Specimen Performing Laboratory Blood - Arm, [address] [address] * CBC with platelet count + automated [...] Granulocytes-Relative Specimen Performing Laboratory Blood - Arm, [place] [address] * CBC with platelet count + automated diff (10/20/2017 12:27 AM) Only the most recent of 3 results within the time period is included. Specimen Performing Laboratory Blood Narrative The following orders were created for panel order CBC with platelet count + automated diff. Procedure Abnormality Status --------- - ------ CBC with platelet count ...[[id number]]AbnormalFinal result Please view results for these tests on the individual orders. * Amylase (10/20/2017 12:27 AM) Component Value Ref Range Amylase 41 25 - 125 U/L Specimen Performing Laboratory Blood - Arm, [address] [address] * Hepatic function panel (10/20/2017 12:27 AM) Component Value Ref Range Protein, Total 7.6 6.0 - 8.3 gm/dL Albumin 4.0 3.5 - 5.0 g/dL Total Bilirubin 1.2 0.2 - 1.2 mg/dL Bilirubin, Direct 0.5 0.1 - 0.5 mg/dL Alkaline Phosphatase 40 40 - 150 U/L AST 18 5 - 34 U/L ALT 24 6 - 55 U/L Specimen Performing Laboratory Blood - Arm, [address] [address] * Basic metabolic panel (Na, K+, Cl, [...] PATIENTS. Specimen Performing Laboratory Blood - Arm, [address] [address] * CBC (Hemogram only) (08/27/2017 2:47 AM) [...] 0 /100 WBC Specimen Performing Laboratory Blood [address] [address] * Tissue Exam (08/26/2017 8:57 PM) Component Value Ref Range Case Report Surgical Pathology Report Case: [id number] Authorizing Provider: Brianda Daly MD Collected: 08/26/20177 Ordering Location: [facility] Received: 08/29/2017 07 SERVICES Pathologist: Jared Hair MD Specimen: Disc L4-5 DIAGNOSIS INTERVERTEBRAL DISC, L4-L5, MICRODISCECTOMY: - FIBROCARTILAGENOUS TISSUE WITH DEGENERATIVE CHANGES Signing Pathologist Direct Phone Line: [phone] CPT Code(s) 98715 and 17356 CLINICAL HISTORY Lumbar radiculopathy SPECIMEN SOURCE Disc L4-5 GROSS DESCRIPTION The specimen is received in formalin-filled container and labeled with the patient's information and labeled "disc L4-5" and consists of multiple fragments of fields fibrocartilaginous tissue measuring 2.6 x 2 x 0.6 cm in aggregate. Submitted entirely A1 for decalcification. CG/pl MICROSCOPIC DESCRIPTION Performed. Specimen Performing Laboratory Tissue - Disc L4-5 [place] [address] * NEEDLE EMG, 2 EXTREMITY (08/26/2017 7:48 PM) Specimen Performing Laboratory GE RIS Narrative INTRAOPERATIVE MONITORING REPORT Patient Name: Brianda Garg [facility] Surgery Date: August 26, 2017 [place]: S/N [id number] Monitoring began at 17:13 and ended at [...] External Ris In - 08/29/2017 1:51 PM PROPERTY INSURANCE AGENT INTRAOPERATIVE MONITORING REPORT Patient Name: Brianda Garg [facility] Surgery Date: August 26, 2017 [place]: S/N [id number] Monitoring began at 17:13 and ended at [...] undisturbed. Mode Baker MD M54.32 * [place] radiation protection specialist in or 30 minute increments (08/26/2017 6:35 [...] MD Report Verified Date/Time:08/26/2017 18:47:17 Reading Location: [address] Consult Reading Room Procedure Note Interface, External Ris In - 08/26/2017 6:57 PM PROPERTY INSURANCE AGENT FINAL REPORT Intraoperative fluoroscopy. Clinical history: Decompression [...] Report Verified Date/Time: 08/26/2017 18:47:17 Reading Location: [address] Consult Reading Room * TRANSFUSION SERVICE REPORT - SCAN (08/26/2017 5:42 PM) * ECG 12 lead (08/26/2017 10:06 AM) Only the most recent of 4 results within the time period is included. Specimen Performing Laboratory [employer] MUSE Narrative Ventricular Rate 50 BPM Atrial Rate 50 BPM P-R Interval 162 ms QRS Duration 106 ms Q-T Interval 472 ms QTC Calculation(Bazett) 430 ms P Monument 26 degrees R Monument -20 degrees T Monument -13 degrees Sinus bradycardia Moderate voltage criteria for LVH, may be normal variant Cannot rule out Septal infarct (cited on or before 20-SEP-1996) Abnormal ECG When compared with ECG of 27-NOV-2017 08:47, NM interval has decreased Nonspecific T wave abnormality no longer evident in Anterior leads Confirmed by MD SLAUGHTER JOSEPH P ([id number]) on 08/26/2017 2:13:00 PM Procedure Note Interface, External Ris In - 08/26/2017 2:13 PM PROPERTY INSURANCE AGENT Ventricular Rate 50 BPM Atrial Rate 50 BPM P-R Interval 162 ms QRS Duration 106 ms Q-T Interval 472 ms QTC Calculation(Bazett) 430 ms P Monument 26 degrees R Monument -20 degrees T Monument -13 degrees Sinus bradycardia Moderate voltage criteria for LVH, may be normal variant Cannot rule out Septal infarct (cited on or before 20-SEP-1996) Abnormal ECG When compared with ECG of 30-MAY-2017 08:47, NM interval has decreased Nonspecific T wave abnormality no longer evident in Anterior leads Confirmed by MD SLAUGHTER JOSEPH P ([id number]) on 08/26/2017 2:13:00 PM * Type and screen, automated (08/25/2017 5:52 AM) Component Value Ref Range ABO/RH AUTOMATED (BEAKER) A POSITIVE Ab Scrn NEGATIVE Specimen Performing Laboratory Blood - Arm, [place] [address] * PT/aPTT (08/25/2017 5:52 AM) Component Value Ref Range Protime 13.3 11.7 - 14.7 seconds INR 1.0 <=5.9 PTT 26.6 22.5 - 36.0 seconds Specimen Performing Laboratory Blood - Arm, [place] [address] Narrative RECOMMENDED COUMADIN/WARFARIN INR THERAPY RANGES STANDARD [...] significant central canal narrowing at this level, gonc-gi-igdkxlnx bilateral foraminal stenosis. The visualized paraspinal and [...] MD Report Verified Date/Time:08/21/2017 10:47:27 Reading Location: [facility] C0[facility] Neuro Reading Room Procedure Note Interface, External Ris In - 08/21/2017 10:55 AM PROPERTY INSURANCE AGENT FINAL REPORT MRI lumbar spine without contrast. [...] significant central canal narrowing at this level, sodg-tz-dzzofveg bilateral foraminal stenosis. The visualized paraspinal and [...] Report Verified Date/Time: 08/21/2017 10:47:27 Reading Location: [facility] C0[facility] Neuro [...] Range Activated Clotting Time 307Comment: TESTED AT [facility] [address] [facility] [place] [address] Specimen Performing Laboratory Blood [facility] [address] [place] [address] * CT heart without & with gating & 3d (07/11/2017 8:39 AM) Specimen Performing Laboratory [employer] RIS Narrative Addendum Begins REPORT STATUS:A Addendum: July 11, 2017 at 1840 hours I have reviewed the CT images for this study and I concur with the nonvascular imaging findings as dictated. Signed: Meme Pino MD Report Verified Date/Time:07/11/2017 18:39:30 Reading Location: [place] [id number] Angio Body Reading Room Addendum Ends FINAL [...] by the interpreting physician using an independent (Vascular Imaging) workstation. Please refer to the contrast sheet [...] dictated regarding the non-vascular findings by the Pediatric Critical Care Nurse Radiologist. Signed: Ricky Mueller MD Report Verified Date/Time:07/11/2017 08:51:54 Reading Location: [facility] P047 Cardiology MRI Procedure Note Interface, External Ris In - 07/11/2017 6:41 PM PROPERTY INSURANCE AGENT Addendum Begins REPORT STATUS:A Addendum: July 11, 2017 at 1840 hours I have reviewed the CT images for this study and I concur with the nonvascular imaging findings as dictated. Signed: Meme Pino MD Report Verified Date/Time: 07/11/2017 18:39:30 Reading Location: [facility] P048 Angio Body Reading [...] by the interpreting physician using an independent (Vascular Imaging) workstation. Please refer to the contrast sheet scanned in the Lunag[employer] system for the amount and route of [...] dictated regarding the non-vascular findings by the Pediatric Critical Care Nurse Radiologist. Signed: Ricky Mueller MD Report Verified Date/Time: 07/11/2017 08:51:54 Reading Location: [place] [address] Cardiology MRI * Comprehensive metabolic panel (07/11/2017 [...] DIALYSIS PATIENTS. Specimen Performing [place] [address] * ECHOCARDIOGRAM REPORT - SCAN (05/28/2017 1:50 [...] MD Report Verified Date/Time:05/28/2017 12:53:01 Reading Location: [facility] C013Y CT Body Reading Room Procedure Note Interface, External Ris In - 05/28/2017 12:55 PM PROPERTY INSURANCE AGENT FINAL REPORT PA and Lateral views of the chest dated 05/28/2017 COMPARISON: July 12, 2014 Clinical information: AF Comment: Heart is normal in size. Pulmonary vasculature is unremarkable. Lungs are clear. No pulmonary infiltrate or pleural effusion is present. Impression: No active cardiopulmonary disease or interval change. Signed: Vaishali Mcallister MD Report Verified Date/Time: 05/28/2017 12:53:01 Reading Location: [facility] B1 C013Y CT Body Reading Room * 2D Echo W/Doppler(CW/PW/Color) (05/28/2017 10:22 AM) Component Value Ref Range Ejection Fraction Specimen Performing Laboratory [facility] CPACS Narrative Transthoracic Echocardiography Report (TTE) Demographics Patient Yunier Larson of Study 05/28/2017 CONSTANTINO THEODORE Male Visit [id number] Unknown Room Number 1131 Number Date of 1965Referring Rachel Floyd MD Physician Age 52 year(s)Applicator Sprayer Layne Hobbs InterpretingNelida Dodd MD [facility] Needs to be Pre Read FellowJuin BASHIR [...] of disk assessment is normal (55-60%) . Gqvb-jp-ifblbwhf concentric LV hypertrophy. 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 Cnip-xy-wlpslbcz concentric LV hypertrophy. The left ventricle is [...] Performing Laboratory Blood - Arm, Left [facility] [address] [address] * Lipid panel (05/28/2017 9:51 AM) Component Value Ref Range Triglycerides 153 mg/dL Cholesterol 218 mg/dL HDL 43 mg/dL LDL Calculated 144 mg/dL Specimen Performing Laboratory Blood - Arm, Left [address] [address] Narrative Triglyceride Reference Range: Low Risk <150 Cdndgjbfwv133-211 High Risk 200-499 Very High Risk>=500 Cholesterol Reference Range: Low Risk <200 Aefzzympqw710-562 High Risk>240 HDL Cholesterol Reference Range: Low Risk >=60 High Risk <40 LDL Cholesterol Reference Range: Optimal<100 Near Izashjz356-772 Gjfzevaqya851-552 Ubrw780-847 Very High >=190 * ED ECG Interpretation (05/28/2017 8:11 AM) Narrative Keven Robb MD 05/28/20178:11 AM ECG/EKG Interpretation Date/Time: 05/28/2017 2:22 AM Performed by: KEVEN ROBB Authorized by: KEVEN ROBB The ECG was interpreted by ED physician. The ECG is interpreted as atrial fibrillation. Rate is normal rate. ST segments normal. T-wave inversion in lead(s) III and aVF. Monument is normal. Q-waves are present in lead(s) V1 and V2. Clinical Impression: abnormal ECGECG reviewed and does not meet STEMI criteria. * Troponin I (not available at [facility] [place]) (05/28/2017 4:22 AM) Component Value Ref Range Troponin I <0.01 0.00 - 0.03 ng/mL Specimen Performing Laboratory Blood [address] [address] Narrative Troponin I (TnI) levels must be [...] INR 1.0 <=5.9 Specimen Performing Laboratory Blood [address] [address] Narrative RECOMMENDED COUMADIN/WARFARIN INR THERAPY RANGES STANDARD [...] MD Report Verified Date/Time:12/22/2016 16:18:17 Reading Location: [address] Radiology Reading Room Procedure Note Interface, [...] Report Verified Date/Time: 12/22/2016 16:18:17 Reading Location: [address] Radiology Reading Room after 10/28/2016
[2017-10-29 17:20] VITALS: BP 136/90
[2017-10-29 17:38] VITALS: BP 136/90
[2017-10-29] MEDS ORDERED: SODIUM CHLORIDE 0.9% 50ML 50 ML ONE (18:21)
[2017-10-29] MEDS ORDERED: IOPAMIDOL 370 MG/ML 200 ML INFUS..BTL INJ ONE (18:22)
[2017-10-29 19:05] VITALS: BP 143/91
[2017-10-29 19:56] VITALS: BP 136/90
[2017-10-29 21:00] VITALS: BP 143/91
[2017-10-30] VITALS: BP 151/92
[2017-10-30 06:10] VITALS: BP 131/85
[2017-10-30 07:12] LABS: BASOPHILS % 0.4 % (0.0-1.0); EOSINOPHILS # (AUTO) 0.1 (0.0-0.4); EOSINOPHILS % 2.1 % (0.0-6.0); HEMATOCRIT 37.6 % (38.2-49.6); HEMOGLOBIN 12.8 g/dL (14.0-18.0); LYMPHOCYTES # (AUTO) 1.5 (1.0-3.2); LYMPHOCYTES % 31.6 % (18.0-39.1); MEAN CORPUSCULAR HEMOGLOBIN 29.5 pg (28-32); MEAN CORPUSCULAR VOLUME 86.6 fL (81-99); MONOCYTES # (AUTO) 0.5 (0.2-0.8); MONOCYTES % 10.5 % (4.4-11.3); NEUTROPHILS # (AUTO) 2.6 (2.1-6.9); NEUTROPHILS % 55.2 % (38.7-80.0); PLATELET COUNT 234 x10e3/uL (140-360); RED BLOOD COUNT 4.34 x10e6/uL (4.3-5.7); RED CELL DISTRIBUTION WIDTH 13.7 % (11.7-14.4)
[2017-10-30 07:41] LABS: ALANINE AMINOTRANSFERASE 19 IU/L (0-55); ALBUMIN 2.9 g/dL (3.5-5.0); ALBUMIN/GLOBULIN RATIO 0.8 (0.8-2.0); ALKALINE PHOSPHATASE 31 IU/L (40-150); ANION GAP 13.2 mmol/L (8-16); BLOOD UREA NITROGEN 20 mg/dL (7-26); BUN/CREATININE RATIO 22 (6-25); CALCIUM 9.2 mg/dL (8.4-10.2); CARBON DIOXIDE 26 mmol/L (22-29); CHLORIDE 107 mmol/L (98-107); CHOL/HDL RATIO 5.1 (3.9-4.7); CHOLESTEROL 127 MD/DL (0-199); CREATINE KINASE 65 IU/L (30-200); CREATININE, SERUM 0.92 mg/dL (0.72-1.25); EST GLOMERULAR FILTRATION RATE > 60 ML/MIN (60-); GLUCOSE 103 mg/dL (74-118); HDL CHOLESTEROL 25 MG/DL (40-60); LDL CHOLESTEROL 66 MG/DL (60-130); MAGNESIUM 1.7 MG/DL (1.3-2.1); POTASSIUM 3.2 mmol/L (3.5-5.1); SODIUM 143 mmol/L (136-145); TRIGLYCERIDES 181 MG/DL (0-149)
[2017-10-30 07:45] LABS: CREATINE KINASE 68 IU/L (30-200)
[2017-10-30 08:12] VITALS: BP 132/86
[2017-10-30] MEDS: METRONIDAZOLE 500 MG TAB PO SCH ×4 (09:00→20:12)
[2017-10-30] MEDS ORDERED: POTASSIUM CHLORIDE 20 MEQ TAB CR PO ONE (09:00)
[2017-10-30] MEDS: CIPROFLOXACIN 500 MG TAB PO SCH ×2 (09:30→16:00)
--- NOTE | 2017-10-30 12:41 | History and Physical ---
PRIMARY CARE PHYSICIAN: Dr. Ayala. CARDIOLOGY: Dr. Kaye. CHIEF COMPLAINT: Near passing out. HISTORY OF PRESENT ILLNESS: This is a 52-year-old male with a history of atrial fibrillation who underwent cardiac ablation in July 2017, now feeling funny after awaking in the morning. He got in his car and on his way to the [employer] the patient felt like he was going to pass out. He quickly pulled over and called 9-1-1. He does admit to chest palpitations, but denies any chest pain. He had lightheadedness. Denies any fever, chills. The patient was recently diagnosed with diverticulitis on October 19, 2017 and started on antibiotics on which he still remains. He denies any other symptoms. PAST MEDICAL HISTORY: Hypertension, atrial fibrillation, status post ablation in July 2017, chronic low back pain, diverticulitis on October 19, 2017, on antibiotics. PAST SURGICAL HISTORY: Lumbar surgery in July 2017. ALLERGIES: PER ELECTRONIC MEDICAL RECORDS. FAMILY HISTORY, SOCIAL HISTORY: The patient is . He has 2 children. No alcohol, illicits or cigarettes. MEDICATIONS: Per electronic medical records. REVIEW OF SYSTEMS: Denies any chest pain. PHYSICAL EXAMINATION VITAL SIGNS: Reviewed. GENERAL APPEARANCE: A tired-appearing man resting in the bed. HEENT: Anicteric. Pupils responsive to light. No oral lesions. CARDIOVASCULAR: Normal S1 and S2. LUNGS: Moderate breath sounds, ABDOMEN: Soft and nondistended. He has right lower abdominal tenderness. No rebound and no guarding. EXTREMITIES: There is no edema. SKIN: Dry. PSYCHIATRIC: Flat affect. LABS: Reviewed. MEDICATIONS: Reviewed. ASSESSMENT AND PLAN: This is a 52-year-old man. 1. Presyncope with lightheadedness. Will obtain an echocardiogram. [employer] found it negative. It may be related to possible supraventricular tachycardia or atrial fibrillation with rapid ventricular response that may have occurred while he was driving. 2. Atrial fibrillation. He had an ablation in July 2017. Will follow up telemetry and will consult cardiology. Obtain echocardiogram. 3. Hypokalemia. Recheck. 4. Cholelithiasis. Follow up outpatient. 5. Recent diverticulitis. Continue antibiotics as prescribed. 6. Hypertension. Restart home medications. 7. Obesity. BMI is 31.2. Will screen for diabetes. LDL and triglycerides of 66 and 181 respectively. 8. Prophylaxis: Use Lovenox and Pepcid. DISPOSITION: Physical therapy. Obtain echocardiogram. Cardiology consultation. Job#: [id number] GH
--- NOTE | 2017-10-30 13:07 | Cardiology Report ---
DATE OF STUDY: October 29, 2017 DOPPLER SCAN OF CAROTID ARTERIES The carotid arteries were interrogated using the Duplex scanning method. Left carotid artery shows mild intimal thickening and plaquing without high-grade stenosis or flow impairment. Left vertebral flow appears to be antegrade. Right carotid artery shows mild intimal thickening and plaquing without high-grade stenosis or flow impairment. Right vertebral flow appears to be antegrade. CONCLUSIONS: 1. No high-grade stenosis bilaterally. 2. Mild intimal thickening and plaquing bilaterally. 3. Vertebral flow appears to be in normal direction bilaterally. Job#: [id number]
[2017-10-30 13:38] LABS: CREATINE KINASE 71 IU/L (30-200)
[2017-10-30] MEDS: FAMOTIDINE 20 MG TAB PO SCH (15:55)
[2017-10-30] MEDS ORDERED: ENOXAPARIN SOD INJ 40 MG/0.4 ML SYR SC SCH (17:00)
[2017-10-30] MEDS: ACETAMINOPHEN/CODEINE 300MG - 30MG TAB PO PRN ×2 (17:40→23:44)
--- NOTE | 2017-10-30 17:57 | Consultation ---
DATE OF CONSULTATION: CARDIOLOGY CONSULTATION CHIEF COMPLAINT: Near syncope. HISTORY OF PRESENT ILLNESS: The patient is a 52-year-old with a recent ablation for atrial fibrillation in July 2017. The patient was driving yesterday when he felt like he was going to pass out, so he pulled over to the side of the road and was taken to the emergency room at [facility]. The patient was subsequently admitted. The patient has had no chest pain, no shortness of breath, no nausea, no vomiting, no abdominal pain. PAST MEDICAL HISTORY: Significant for: 1. Coronary artery ablation in 2018. 2. Recent surgery for lower back pain in August 2017. 3. History of diverticulitis last month, currently still on antibiotics. PATIENT'S MEDICATIONS AT HOME: Include aspirin, amiodarone and lisinopril. SOCIAL HISTORY: The patient does not drink. He used to smoke. The patient is . FAMILY HISTORY: There is a known family history of hypertension. PHYSICAL EXAMINATION GENERAL: The patient is a well-developed, well-nourished male in no obvious distress. VITAL SIGNS: Temperature 98.8, blood pressure 140/80, pulse 76. HEAD, EARS, EYES, NOSE AND THROAT: The patient's cranium is normocephalic and atraumatic. The extraocular muscles are intact. Sclerae are anicteric. Pupils are equal, round and reactive to light. There is no pallor or cyanosis of the oral mucosa. There is no erythema or edema of the throat. NECK: Supple. No jugular venous distention. No carotid bruit. CHEST: Clear to auscultation and percussion. CARDIAC: Normal S1 and S2 with no murmurs, rubs or gallops. ABDOMEN: Good bowel sounds. No tenderness. EXTREMITIES: No clubbing, no cyanosis and no edema. NEUROLOGIC: The patient is alert and oriented times 3. Cranial nerves II through XII are intact. Motor strength is intact in all limbs. EKG demonstrated normal sinus rhythm with some nonspecific ST and T wave changes. IMPRESSION: The patient is a 52-year-old with recent ablation for atrial fibrillation. He was admitted with a near syncopal episode. The patient has been in normal sinus rhythm on telemetry since arrival. The patient's echocardiogram demonstrated normal left ventricular size and function with no significant valvular abnormalities. The patient's carotid duplex demonstrated no stenosis. 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 Job#: [id number] CAITLIN
[2017-10-30 19:00] VITALS: BP 142/99
[2017-10-30 20:13] VITALS: BP 142/99
[2017-10-30] MEDS ORDERED: METOPROLOL SUCCINATE 50 MG TAB XL PO SCH (21:00)
[2017-10-31 00:30] VITALS: BP 150/95
[2017-10-31] MEDS ORDERED: DIATRIZOATE MEGL/DIATRIZOA SOD 30 ML BTL PO ONE (07:31)
[2017-10-31] MEDS ORDERED: FLAGYL500 MG PO (07:36)
[2017-10-31] MEDS ORDERED: LEVAQUIN500 MG PO (07:36)
[2017-10-31 07:43] VITALS: BP 129/92
[2017-10-31] MEDS ORDERED: HYDROCHLOROTHIAZIDE 25 MG TAB PO SCH (09:00)
[2017-10-31] MEDS ORDERED: LISINOPRIL 10 MG TAB PO SCH (09:00)
[2017-10-31] MEDS ORDERED: AMIODARONE HCL 200 MG TAB PO SCH (09:00)
[2017-10-31] MEDS: CIPROFLOXACIN 500 MG TAB PO SCH (09:36)
[2017-10-31] MEDS: FAMOTIDINE 20 MG TAB PO SCH (09:36)
[2017-10-31] MEDS: METRONIDAZOLE 500 MG TAB PO SCH ×2 (09:37→13:06)
--- NOTE | 2017-10-31 10:01 | Diagnostic Imaging Report ---
PROCEDURE: CT ABDOMEN AND PELVIS WITH CONTRAST TECHNIQUE: The abdomen and pelvis were scanned utilizing a multidetector helical scanner from the diaphragm to the lesser trochanter after the IV administration of 100 cc of Isovue 370 and the oral administration of Gastroview. Coronal and sagittal multiplanar reformations were obtained. COMPARISON: CT chest 10/29 2017. INDICATIONS: DIVERTICULITIS FINDINGS: LOWER THORAX: Linear opacity compatible with subsegmental atelectasis in the dependent lower lobes.. HEPATOBILIARY: No focal hepatic lesion or intrahepatic biliary ductal dilatation. Radiopaque calculus within the gallbladder neck. Additional high density material in the gallbladder likely reflects vicarious biliary excretion of intravenous contrast material from 10/29/2017. No wall thickening or pericholecystic inflammation. SPLEEN: No splenomegaly. PANCREAS: No focal masses or ductal dilatation. ADRENALS: No adrenal nodules. KIDNEYS/URETERS: No hydronephrosis, calculi, or solid mass lesions. Small cyst in the lower pole of the left kidney (average internal attenuation 15-20 Hounsfield units. Similar small cysts in the interpolar right kidney. PELVIC ORGANS/BLADDER: Urinary bladder, prostate, and seminal vesicles are unremarkable. PERITONEUM / RETROPERITONEUM: No ascites. No pneumoperitoneum. LYMPH NODES: No pelvic sidewall, retroperitoneal, or mesenteric lymphadenopathy. VESSELS: The abdominal aorta, major branch vessels, and iliac arterial systems are well-visualized and patent, without aneurysmal dilatation. Portal vein, splenic vein, and central superior mesenteric vein are patent. GI TRACT: The large bowel shows no evidence of distention.. There are a few diverticula along the ascending colon with a short segment focus of wall thickening of the mid ascending colon with associated mesocolic inflammatory stranding and free fluid along the paracolic gutter. A fat lobule is noted within the central area of inflammatory change seen on series 2 image 53. The appendix is normal. No loculated fluid collection or extraluminal gas. Prominence of the gastric rugal folds is related to underdistention. No small bowel dilatation to suggest obstruction. BONES AND SOFT TISSUES: Mild degenerative disc changes of the lower lumbar spine. No focal soft tissue abnormalities.. IMPRESSION: Short segment diverticulitis versus epiploic appendagitis of the mid ascending colon. No sophie perforation or drainable fluid collection. Direct visualization should be considered after appropriate treatment to exclude presence of underlying mass lesion. Cholelithiasis. Dictated by: Mando Elaine M.D. on 10/31/2017 at 10:03 Electronically approved by: Mando Elaine M.D. on 10/31/2017 at 10:03
[2017-10-31 12:27] VITALS: BP 155/103
[2017-10-31 12:46] VITALS: BP 155/103
[2017-10-31] MEDS ORDERED: SODIUM CHLORIDE 0.9% 50ML 50 ML ONE (12:58)
[2017-10-31] MEDS ORDERED: IOPAMIDOL 370 MG/ML 200 ML INFUS..BTL INJ ONE (12:58)
[2017-10-31 16:36] VITALS: BP 148/88
== END 2017-10-31 16:47 | disposition home or self-care (01) ==
LOC: ER 09:44 → ERHOLD 13:12 → IMCU 17:07
PROVIDERS: ADMIT Internal Medicine; ATTEND Internal Medicine
DX: R55 Syncope and collapse (principal); I48.0 Paroxysmal atrial fibrillation; I10 Essential (primary) hypertension; E87.6 Hypokalemia; K80.20 Calculus of gallbladder without cholecystitis without obstruction; K57.92 Diverticulitis of intestine, part unspecified, without perforation or abscess without bleeding; E66.9 Obesity, unspecified; Z68.31 Body mass index [BMI] 31.0-31.9, adult
CPT/HCPCS: 36415 ×2; 70450; 71045; 71260; 74177; 80053 ×2; 80061; 81001; 82550 ×2; 82553 ×2; 83036; 83605; 83735 ×2; 83880; 84132; 84443; 84484 ×2; 85025 ×2; 85379; 85610; 85730; 87040; 93005; 93306; 93880; 97139; 97161; 99284; G0378 ×3; J1650; J7030; Q9967 ×2